=== PATIENT | male | born 1940 | race Caucasian/White ===

== ENCOUNTER 2017-04-17 08:09 | Outpatient (CLI) | payer MEDICARE, OTHER | END 2017-04-17 08:10 | disposition critical access hospital (66) | LOC: EMS 08:09 | PROVIDERS: ATTEND Surgery | DX: R06.00 Dyspnea, unspecified (principal) | CPT/HCPCS: A0425; A0429 ==

== ENCOUNTER 2017-04-17 08:28 | Inpatient (IN) | payer MEDICARE, OTHER ==
--- NOTE | 2017-04-17 08:38 | ED Physician Documentation ---
History of Present Illness - Stated complaint Stated Complaint: DIFFICULTY BREATHING - Additonal information Additional information: hx from EMS and paperwork from [facility] 77 male DNR comfort measures only, POLST brought by EMS hx a fib, hypokalemia, resp failure, dementia per EMS sent to ER today for gurgling resp, concern for aspiration no reported fever no NVD pt denies any pain per EMS, family/POA has been contacted prior to transport and wanted pt sent to ER for eval and per POLST "antibiotics as needed for comfort" was 85% RA and better on 4 L NC Review of Systems Constitutional: denies: Fever Cardiac: denies: Chest pain / pressure Respiratory: reports: Dyspnea. denies: Cough (gurgling but not coughing) GI: denies: Abdominal Pain, Nausea, Vomiting, Diarrhea Skin: denies: Rash Musculoskeletal: denies: Neck pain, Back pain Neurologic: reports: Confused (dementia) Endocrine: denies: Easy bruising / bleeding Immunocompromised: denies: Immunocompromised PD PAST MEDICAL HISTORY - Past Medical History Cardiovascular: None, High cholesterol Respiratory: None Neuro: None, Tremors Endocrine/Autoimmune: None GI: None, Pancreatitis : None HEENT: None Psych: None Musculoskeletal: None Derm: None - Past Surgical History Past Surgical History: Yes HEENT: Tonsil/Adenoidectomy - Present Medications Home Medications: Ambulatory Orders Medication Instructions Recorded Confirmed Acetaminophen 650 mg PO BID 04/17/17 04/17/17 Aspirin Chewable [St Patricio 81 mg PO DAILY 04/17/17 04/17/17 Aspirin] Pnv95/Ferrous Fumarate/FA 1 tab PO DAILY 04/17/17 04/17/17 [ Tablet] Quetiapine Fumarate [Quetiapine 50 mg PO QPM 04/17/17 04/17/17 Fumarate] Tamsulosin [Flomax] 0.4 mg PO DAILY 04/17/17 04/17/17 - Allergies Allergies/Adverse Reactions: Allergies Allergy/AdvReac Type Severity Reaction Status Date / Time No Known Drug Allergies Allergy Verified 03/30/13 18:39 - Social History Does the pt smoke?: Yes Smoking Status: Current every day smoker Does the pt drink ETOH?: Yes Does the pt have substance abuse?: No - Immunizations Immunizations are current?: Yes - POLST Patient has POLST: No PD ED PE NORMAL - Vitals Vital signs reviewed: Yes (tacypneic hypoxic borderline hypotensive) - General General: No: Alert and oriented X 3 - HEENT HEENT: Atraumatic - Neck Neck: Supple, no meningeal sign - Cardiac Cardiac: RRR (distant hard to hear over breath sounds) - Respiratory Respiratory: Other (wet gurgling resp bilaterally) - Derm Derm: Normal color - Extremities Extremities: No edema - Neuro Neuro: No: Alert and oriented X 3 (per EMS baseline dementia) Results - Vitals Vitals: Vital Signs - 24 hr 04/17/17 04/17/17 08:29 10:42 Temperature 36.8 C Heart Rate 86 74 Respiratory 26 H 18 Rate Blood Pressure 100/60 115/64 O2 Saturation 91 L 90 L Oxygen O2 Source [Without Activity] Room air O2 Source [With Activity] Room air O2 Source Room air Oxygen Flow Rate 4 - EKG (time done) 0837 Rate: Rate (enter#) (86) Rhythm: Atrial fibrillation (not new) Ischemia: Non specific changes (flat T waves inf and lat) - Labs Labs: Laboratory Tests 04/17/17 04/17/17 04/17/17 09:23 09:23 09:23 WBC 14.4 H RBC 3.78 L Hgb 11.5 L Hct 34.2 L MCV 90.5 MCH 30.5 MCHC 33.7 RDW 14.1 Plt Count 243 MPV 7.6 Neut # 12.1 H Lymph # 1.3 L [place] # 0.9 Eos # 0.0 Baso # 0.1 Absolute Nucleated RBC 0.00 Nucleated RBC % 0.0 Sodium 137 Potassium 4.0 Chloride 99 L Carbon Dioxide 25 Anion Gap 13.0 BUN 21 H Creatinine 1.3 H Estimated GFR (MDRD) 53 L Glucose 95 Lactic Acid Calcium 9.0 Troponin I < 0.04 B-Natriuretic Peptide 04/17/17 04/17/17 09:23 09:23 WBC RBC Hgb Hct MCV MCH MCHC RDW Plt Count MPV Neut # Lymph # [place] # Eos # Baso # Absolute Nucleated RBC Nucleated RBC % Sodium Potassium Chloride Carbon Dioxide Anion Gap BUN Creatinine Estimated GFR (MDRD) Glucose Lactic Acid 1.1 Calcium Troponin I B-Natriuretic Peptide 101 H - Rads (name of study) CXR Radiology: See rad report (LLL pna) PD MEDICAL DECISION MAKING - ED course ED course: LLL pna, hypotesnive meets SIRS criteria and no CHF on CXR so started IVF resusc , gave rocephin zmax (as not RML doubt aspiration), lives in assisted living and hypoxic so cannot dc and will admit nurse Onesimo updated family - see NN paged hospitalist approx 10 AM Departure - Departure Disposition: 66 [facility] DC/Xfer Clinical Impression: Hypoxia Pneumonia Qualifiers: Pneumonia type: due to unspecified organism Laterality: left Lung location: lower lobe of lung Qualified Code(s): J18.1 - Lobar pneumonia, unspecified organism Sepsis Qualifiers: Sepsis type: sepsis due to unspecified organism Qualified Code(s): A41.9 - Sepsis, unspecified organism Condition: Serious
--- NOTE | 2017-04-17 09:28 | XRAY Preliminary Report ---
Exam: XR CHEST 2 VIEW PA/LAT IMPRESSION: Left lower lobe airspace disease compatible with pneumonia. [facility] SITE ID: [id number]
[2017-04-17] MEDS ORDERED: cefTRIAXone 1 GM in SODIUM CHLORIDE 0.9% MINIBAG 100 ML IV STA (09:31)
[2017-04-17] MEDS ORDERED: AZITHROMYCIN INJ 500 MG in SODIUM CHLORIDE 0.9% 250 ML IV STA (09:31)
--- NOTE | 2017-04-17 09:31 | XRAY Report ---
EXAM: CHEST RADIOGRAPHY EXAM DATE: 04/17/2017 08:51 AM. CLINICAL HISTORY: Cough and rhonchi, possible aspiration. COMPARISON: Chest x-ray 10/05/2013. TECHNIQUE: 2 views. FINDINGS: Lungs/Pleura: Left lower lobe airspace disease. Bibasilar atelectasis. No pneumothorax. Mediastinum: Heart and mediastinal contours are unremarkable. Other: Diffuse osteopenia with midthoracic kyphosis. Mid thoracic spine degenerative changes. Left sh oulder degenerative changes. IMPRESSION: Left lower lobe airspace disease compatible with pneumonia. [facility] Referring Provider Line: [phone] SITE ID: [id number]
[2017-04-17 09:33] LABS: BASOPHILS # (AUTO) 0.1 10^3/uL (0.0-0.1); BASOPHILS % (AUTO) 0.5 %; HCT - HEMATOCRIT 34.2 % (42.0-52.0); HGB - HEMOGLOBIN 11.5 g/dL (14.0-18.0); LYMPHOCYTES # (AUTO) 1.3 10^3/uL (1.5-3.5); LYMPHOCYTES % (AUTO) 9.3 %; MEAN CORPUSCULAR HEMOGLOBIN 30.5 pg (27.0-31.0); MEAN CORPUSCULAR HGB CONC 33.7 g/dL (32.0-36.0); MEAN CORPUSCULAR VOLUME 90.5 fL (80.0-94.0); MEAN PLATELET VOLUME 7.6 fL (7.4-11.4); MONOCYTES # (AUTO) 0.9 10^3/uL (0.0-1.0); NEUTROPHILS # (AUTO) 12.1 10^3/uL (1.5-6.6); NEUTROPHILS % (AUTO) 84.2 %; RED BLOOD COUNT 3.78 10^6/uL (4.70-6.10); RED CELL DISTRIBUTION WIDTH 14.1 % (12.0-15.0); UNCORRECTED WHITE BLOOD COUNT 14.4 x10^3/uL; WHITE BLOOD COUNT 14.4 x10^3/uL (4.8-10.8)
[2017-04-17 09:42] LABS: CREATININE 1.3 mg/dL (0.6-1.2)
[2017-04-17] MEDS ORDERED: SODIUM CHLORIDE 0.9% 2,500 ML IV ONE (09:43)
[2017-04-17] MEDS ORDERED: cefTRIAXone 1 GM VIAL ONE (09:47)
[2017-04-17] MEDS ORDERED: LORazepam 2 MG/ML SYRINGE IVP STA (11:14)
[2017-04-17] MEDS ORDERED: LORazepam 2 MG/ML SYRINGE ONE (11:26)
[2017-04-17] MEDS ORDERED: SODIUM CHLORIDE FLUSH 0.9% 10 ML SYRINGE IVP PRN (12:22)
[2017-04-17] MEDS ORDERED: ONDANSETRON ODT 4 MG TABLET TL PRN (12:22)
--- NOTE | 2017-04-17 12:30 | HISTORY & PHYSICAL EXAMINATION ---
Chief Complaint - Chief Complaint Chief Complaint: shortness of breath Respiratory Admission HPI - Admitted From Admitted from: ED - History Obtained From Records Reviewed: RN notes reviewed, Old records reviewed History obtained from: Family Exam limitations: Clinical condition, Other (AMS) - History of Present Illness Severity at the worst: reports: Moderate Context of Onset: reports: Exertion, Inspiration Improved with: reports: Rest, Oxygen Worsened by: reports: Exertion, Movement Associated symptoms: reports: Diaphoresis, General weakness HPI Comment/Other: Ed Robert is a 77 year old male with a history of A-fib, hypokalemia, resp failure, dementia who resides at [facility]. He is a DNR, with comfort measures only, per POLST brought by EMS. An ambulance was called due to the patient noted as having gurgling respirations, concern for aspiration. There have been no reported fevers, nausea, vomiting or diarrhea. According to EMS, family/POA has been contacted prior to transport and wanted patient sent to ER for evaluation and per POLST "antibiotics as needed for comfort". Once in the ED, the patient was noted to have an oxygen saturation of only 85% on room air, improved on 4 L NC. He will be admitted to the hospitalist service and treated for HCAP. Number listed for next of kin is now per daughter. Chart updated. PMH/PSH - Past Medical History Cardiovascular: positive: None, High cholesterol Respiratory: positive: None Neuro: positive: None, Tremors Endocrine/Autoimmune: positive: None GI: positive: None, Pancreatitis : positive: None HEENT: positive: None Psych: positive: None Musculoskeletal: positive: None Derm: positive: None MRSA Hx?: No - Past Surgical History HEENT: positive: Tonsil/Adenoidectomy Social & Family Hx - Living Situation Living Arrangement: nursing home Living Situation: With caregiver(s) - Social History Does the pt smoke?: Yes Smoking Status: Current every day smoker Does the pt drink ETOH?: Yes Does the pt have substance abuse?: No - POLST Patient has POLST: Yes POLST Status: DNR (antibioitics ok.) - Family History Family History: Mother: , Father: , Sister: Meds/Allgy - Home Medications Home Medications: Ambulatory Orders Medication Instructions Recorded Confirmed Acetaminophen 650 mg PO BID 04/17/17 04/17/17 Aspirin Chewable [St Patricio 81 mg PO DAILY 12/05/17 12/05/17 Aspirin] Pnv95/Ferrous Fumarate/FA 1 tab PO DAILY 04/17/17 04/17/17 [ Tablet] Quetiapine Fumarate [Quetiapine 50 mg PO QPM 04/17/17 04/17/17 Fumarate] Tamsulosin [Flomax] 0.4 mg PO DAILY 04/17/17 04/17/17 - Allergies Allergies/Adverse Reactions: Allergies Allergy/AdvReac Type Severity Reaction Status Date / Time No Known Drug Allergies Allergy Verified 03/30/13 18:39 Review of Systems - Constitutional Constitutional: reports: Fatigue, Weakness, Poor appetite, Diaphoresis - Ears, Nose & Throat Ears, Nose & Throat: reports: Hearing loss, Nasal congestion - Respiratory Respiratory: reports: Cough, Sputum production, SOB at rest, SOB with exertion - Gastrointestinal Gastrointestinal: reports: Bloating, Poor appetite - Genitourinary Genitourinary: reports: Dysuria, Frequency, Urgency, Incontinence, Nocturia - Musculoskeletal Musculoskeletal: reports: Limited range of motion, Muscle weakness, Joint swelling - Integumentary Integumentary: reports: Dryness - Neurological Neurological: reports: General weakness, Memory problems, Pre-existing deficit, Abnormal gait, Incoordination - Psychiatric Psychiatric: reports: Anxiety - All Other Systems All Other Systems: reports: Reviewed and negative Exam - Vital Signs Reviewed Vital Signs: Yes Vital Signs: Vital Signs x48h Temp Pulse Resp BP Pulse Ox 04/17/17 10:42 74 18 115/64 90 L 04/17/17 08:29 36.8 C 86 26 H 100/60 91 L - Physical Exam General Appearance: positive: Moderate distress, Anxious Eyes Bilateral: positive: Normal inspection ENT: positive: ENT inspection nml, Dry mucous membranes Neck: positive: Nml inspection, Thyroid nml, Lymphadenopathy (R), Lymphadenopathy (L) Respiratory: positive: Chest non-tender, Wheezes, Rhonchi Cardiovascular: positive: Regular rate & rhythm, No gallop, Systolic murmur Peripheral Pulses: positive: 1+ Abdomen: positive: Guarding, Rebound, Hepatomegaly, Abnml bowel sounds Back: positive: Nml inspection Skin: positive: Color nml, No rash, Cyanosis, Diaphoresis, Pallor Extremities: positive: Full ROM, Pedal edema, Calf tenderness Neurologic/Psychiatric: positive: Disoriented to place, Disoriented to time, Weakness, Sensory loss, Depressed mood/affect Reflexes: Bicep (R): 2+, Bicep (L): 2+ Results - Lab Results Lab results reviewed: Yes Fish Bones: 04/17/17 09:23 04/17/17 09:23 Other Lab Results: Lab Results x24hrs 04/17/17 04/17/17 04/17/17 Range/Units 09:23 09:23 09:23 WBC (4.8-10.8) x10^3/uL RBC (4.70-6.10) 10^6/uL Hgb (14.0-18.0) g/dL Hct (42.0-52.0) % MCV (80.0-94.0) fL MCH (27.0-31.0) pg MCHC (32.0-36.0) g/dL RDW (12.0-15.0) % Plt Count (130-450) 10^3/uL MPV (7.4-11.4) fL Neut # (1.5-6.6) 10^3/uL Lymph # (1.5-3.5) 10^3/uL [place] # (0.0-1.0) 10^3/uL Eos # (0.0-0.7) 10^3/uL Baso # (0.0-0.1) 10^3/uL Absolute Nucleated RBC x10^3/uL Nucleated RBC % /100WBC Sodium (135-145) mmol/L Potassium (3.5-5.0) mmol/L Chloride (101-111) mmol/L Carbon Dioxide (21-32) mmol/L Anion Gap (6-13) BUN (6-20) mg/dL Creatinine (0.6-1.2) mg/dL Estimated GFR (MDRD) (>89) Glucose (70-100) mg/dL Lactic Acid 1.1 (0.5-2.2) mmol/L Calcium (8.5-10.3) mg/dL Troponin I < 0.04 (<0.49) ng/mL B-Natriuretic Peptide 101 H (5-100) pg/mL 04/17/17 04/17/17 Range/Units 09:23 09:23 WBC 14.4 H (4.8-10.8) x10^3/uL RBC 3.78 L (4.70-6.10) 10^6/uL Hgb 11.5 L (14.0-18.0) g/dL Hct 34.2 L (42.0-52.0) % MCV 90.5 (80.0-94.0) fL MCH 30.5 (27.0-31.0) pg MCHC 33.7 (32.0-36.0) g/dL RDW 14.1 (12.0-15.0) % Plt Count 243 (130-450) 10^3/uL MPV 7.6 (7.4-11.4) fL Neut # 12.1 H (1.5-6.6) 10^3/uL Lymph # 1.3 L (1.5-3.5) 10^3/uL [place] # 0.9 (0.0-1.0) 10^3/uL Eos # 0.0 (0.0-0.7) 10^3/uL Baso # 0.1 (0.0-0.1) 10^3/uL Absolute Nucleated RBC 0.00 x10^3/uL Nucleated RBC % 0.0 /100WBC Sodium 137 (135-145) mmol/L Potassium 4.0 (3.5-5.0) mmol/L Chloride 99 L (101-111) mmol/L Carbon Dioxide 25 (21-32) mmol/L Anion Gap 13.0 (6-13) BUN 21 H (6-20) mg/dL Creatinine 1.3 H (0.6-1.2) mg/dL Estimated GFR (MDRD) 53 L (>89) Glucose 95 (70-100) mg/dL Lactic Acid (0.5-2.2) mmol/L Calcium 9.0 (8.5-10.3) mg/dL Troponin I (<0.49) ng/mL B-Natriuretic Peptide (5-100) pg/mL - Diagnostic Imaging Results Diagnostic Imaging Results: positive: Final report reviewed Diagnostic Imaging Results Comments: Chest x-ray 04/17/17: FINDINGS: Lungs/Pleura: Left lower lobe airspace disease. Bibasilar atelectasis. No pneumothorax. Mediastinum: Heart and mediastinal contours are unremarkable. Other: Diffuse osteopenia with midthoracic kyphosis. Mid thoracic spine degenerative changes. Left shoulder degenerative changes. IMPRESSION: Left lower lobe airspace disease compatible with pneumonia. - EKG Results EKG Interpreted Independently: Yes ARRA - Anticipated LOS Anticipated Stay Length: 2 or more midnights - AMI - Statin at Admit Aspirin Prescribed on Admit: No Not Ordered - Medical Reason: Contraindicated - Stroke - Rehab Assessment Rehab services assessment to be ordered?: No Not Ordered - Medical Reason: Contraindicated - DVT/VTE - Prophylaxis VTE/DVT Device ordered at admit?: Yes VTE/DVT Prophylaxis med ordered at admit?: Yes Impression/Plan - Problem List Problem List: Pneumonia (J18.9)- Patient was profoundly hypoxic on admission. Elevated WBCs 14.4. Possible aspiration PNA d/t decline in health. Plan: Blood cultures-final pending. Urine culture-pending. Start IV pip-tazo and support respiratory status. Hypoxia (R09.02)- Patient required 4L oxymask on admit. Plan: Start treatment for PNA, wean O2. ETOH abuse (F10.10) - Patient has a known history of this, but cannot use currently due to housing situation. Plan: Continue to restrict use. DNR (do not resuscitate) (Z66)- Patient has a POA who is his son, and daughter being secondary. Plan: Continue supportive care as per POLST documentation. DVT prophylaxis with enoxaparin.
[2017-04-17] MEDS: SODIUM CHLORIDE FLUSH 0.9% 10 ML SYRINGE IVP SCH ×2 (14:21→20:34)
[2017-04-17 20:04] LABS: BILIRUBIN,URINE NEGATIVE (NEGATIVE)
[2017-04-17 20:11] LABS: UR CULTURE IF IND NOT INDICATED; WBC,URINE 0-3 /HPF (0-3)
[2017-04-17] MEDS: PIPERACILLIN/TAZOBACTAM 4.5 GM in SODIUM CHLORIDE 0.9% MINIBAG 100 ML IV SCH (20:34)
[2017-04-17] MEDS: OLANZapine ODT 5 MG TABLET TL SCH (20:34)
[2017-04-18] MEDS: PIPERACILLIN/TAZOBACTAM 4.5 GM in SODIUM CHLORIDE 0.9% MINIBAG 100 ML IV SCH ×4 (02:19→20:10)
[2017-04-18] MEDS: SODIUM CHLORIDE FLUSH 0.9% 10 ML SYRINGE IVP SCH ×3 (02:19→20:10)
[2017-04-18] MEDS: POLYETHYLENE GLYCOL 3350 17 GM PACKET PO SCH (08:24)
[2017-04-18] MEDS: ENOXAPARIN 40 MG/0.4 ML SYRINGE SUBQ SCH (08:24)
--- NOTE | 2017-04-18 17:08 | PROVIDER PROGRESS NOTE ---
Subjective - Prog Note Date Prog Note Date: 04/18/17 Prog Note Time: 17:07 - Subjective Pt reports feeling: Improved Subjective: Ed admits to not remembering yesterday and cannot say where he is today. He states that he has pain "every where". He denies SOB, chest pain, or N/V. Current Medications - Current Medications Current Medications: Active Medications Enoxaparin Sodium (Lovenox) 40 mg SUBQ DAILY [facility] Last Admin: 04/18/17 08:24 Dose: 40 mg Piperacillin Sod/Tazobactam (Sod 4.5 gm/ Sodium Chloride) 100 mls @ 200 mls/hr IV Q6H [facility] Last Infusion: 04/18/17 14:34 Dose: Infused Olanzapine (Zyprexa Odt) 5 mg TL QPM [facility] Last Admin: 04/17/17 20:34 Dose: 5 mg Ondansetron HCl (Zofran Odt) 4 mg TL Q6HR PRN PRN Reason: Nausea / Vomiting Polyethylene Glycol (Miralax) 17 gm PO DAILY [facility] Last Admin: 04/18/17 08:24 Dose: Not Given Sodium Chloride (Normal Saline Flush 0.9%) 10 ml IVP PRN PRN PRN Reason: NEEDED PER PROVIDER ORDERS Sodium Chloride (Normal Saline Flush 0.9%) 10 ml IVP Q8HR [facility] Last Admin: 04/18/17 14:04 Dose: 10 ml Acetaminophen 650 mg PO BID 04/17/17 Aspirin Chewable [St Patricio Aspirin] 81 mg PO DAILY 04/17/17 Pnv95/Ferrous Fumarate/FA [ Tablet] 1 tab PO DAILY 04/17/17 Quetiapine Fumarate [Quetiapine Fumarate] 50 mg PO QPM 04/17/17 Tamsulosin [Flomax] 0.4 mg PO DAILY 04/17/17 Objective - Vital Signs/Intake & Output Reviewed Vital Signs: Yes Vital Signs: Vital Signs x48h Temp Pulse Resp BP Pulse Ox 04/18/17 15:34 36.6 C 83 17 119/78 92 Intake & Output: Intake & Output 04/15/17 04/16/17 04/17/17 04/18/17 23:59 23:59 23:59 23:59 Intake Total 2600 300 Output Total 1400 350 Balance 1200 -50 - Objective General Appearance: positive: No acute distress, Alert Eyes Bilateral: positive: Other (Bilateral lower lid inflammation.) ENT: positive: ENT inspection nml, Dry mucous membranes Neck: positive: Nml inspection, Thyroid nml, No JVD Respiratory: positive: Chest non-tender, No respiratory distress, Rhonchi ( diffuse, throughout.) Cardiovascular: positive: Regular rate & rhythm, No gallop, Systolic murmur Peripheral Pulses: 1+ Radial (R), 1+ Radial (L) Abdomen: positive: Tenderness, Hepatomegaly, Abnml bowel sounds Back: positive: Nml inspection Skin: positive: Color nml, No rash, Warm, Dry Extremities: positive: Non-tender, Full ROM (sitting iraqi style for exam.), Pedal edema, Calf tenderness Neurologic/Psychiatric: positive: Disoriented to place, Disoriented to time, Weakness, Sensory loss, Depressed mood/affect Reflexes: Bicep (R): 2+, Bicep (L): 2+ - Lab Results Fish Bones: 04/17/17 09:23 04/17/17 09:23 Other Labs: Lab Results x24hrs 04/17/17 Range/Units 19:36 Urine Color YELLOW Urine Clarity CLEAR (CLEAR) Urine pH 6.0 (5.0-7.5) PH Ur Specific [place] 1.020 (1.002-1.030) Urine Protein NEGATIVE (NEGATIVE) mg/dL Urine Glucose (UA) NEGATIVE (NEGATIVE) mg/dL Urine Ketones NEGATIVE (NEGATIVE) mg/dL Urine Occult Blood NEGATIVE (NEGATIVE) Urine Nitrite NEGATIVE (NEGATIVE) Urine Bilirubin NEGATIVE (NEGATIVE) Urine Urobilinogen 0.2 (NORMAL) (NORMAL) E.U./dL Ur Leukocyte Esterase NEGATIVE (NEGATIVE) Urine RBC 0-5 (0-5) /HPF Urine WBC 0-3 (0-3) /HPF Ur Squamous Epith Cells RARE Squamous (<= Few) Urine Bacteria Rare (None Seen) /HPF Urine Culture Comments NOT INDICATED - Diagnostic Imaging Diagnostic Imaging Results: positive: Final report reviewed Assessment/Plan - Problem List (1) Hypoxia Impression: Patient required 4L oxymask on admit. Remarkably improved respiratory efforts today on exam. Able to speak in full sentences and much more alert. Plan: Start treatment for PNA, wean O2. (2) Pneumonia Impression: Patient was profoundly hypoxic on admission. Elevated WBCs 14.4. Likely aspiration PNA d/t decline in health and noted coughing spells after oral intake. Blood cultures-final pending. Urine culture-pending. Plan: Continue IV pip-tazo and support respiratory status. Qualifiers: Pneumonia type: aspiration pneumonia Aspiration pneumonia type: unspecified Laterality: left Lung location: lower lobe of lung Qualified Code(s): J69.0 - Pneumonitis due to inhalation of food and vomit (3) Sepsis Impression: Patient was profoundly hypoxic on admission. Elevated WBCs 14.4. Possible aspiration PNA d/t decline in health. Sepsis work up as patient was also found to be febrile with a temp max of 38.9. Plan: Blood cultures- no growth to date. Urine culture-pending. Start IV pip- tazo and support respiratory status. Qualifiers: Sepsis type: sepsis due to unspecified organism Qualified Code(s): A41.9 - Sepsis, unspecified organism (4) DNR (do not resuscitate) Impression: Patient has a primary POA who is his son, and a secondary listed as his daughter. Plan: Provide antibiotics as per POLST document with a focus on comfort.
[2017-04-18] MEDS: OLANZapine ODT 5 MG TABLET TL SCH (20:10)
[2017-04-19] MEDS: PIPERACILLIN/TAZOBACTAM 4.5 GM in SODIUM CHLORIDE 0.9% MINIBAG 100 ML IV SCH ×2 (02:04→09:22)
[2017-04-19] MEDS: SODIUM CHLORIDE FLUSH 0.9% 10 ML SYRINGE IVP SCH ×2 (02:04→09:21)
--- NOTE | 2017-04-19 08:47 | DISCHARGE SUMMARY ---
Discharge Summary Admit Date: 04/17/17 Discharging Provider: PANCHITO Etienne Primary Care Provider: Muna Larry Code Status: Do Not Attempt Resuscitation Condition at Discharge: Good Discharge Disposition: 03 SNF DC/Xfer Discharge Facility Name: Home - DIAGNOSES Admission Diagnoses: Pneumonia (J18.9) Hypoxia (R09.02) ETOH abuse (F10.10) DNR (do not resuscitate) (Z66) DVT prophylaxis with enoxaparin. Discharge Diagnoses with Status of Each Condition: Hypoxia (R09.02) Pneumonia (J18.9) DNR (do not resuscitate) (Z66) ETOH abuse (F10.10) Sepsis (A41.9) - HPI History of Present Illness: Ed Chrnirali is a 77 year old male with a history of A-fib, hypokalemia, resp failure, dementia who resides at [facility]. He is a DNR, with comfort measures only, per POLST brought by EMS. An ambulance was called due to the patient noted as having gurgling respirations, concern for aspiration. There have been no reported fevers, nausea, vomiting or diarrhea. According to EMS, family/POA has been contacted prior to transport and wanted patient sent to ER for evaluation and per POLST "antibiotics as needed for comfort". Once in the ED, the patient was noted to have an oxygen saturation of only 85% on room air, improved on 4 L NC. He will be admitted to the hospitalist service and treated for HCAP. Number listed for next of kin is now per daughter. Chart updated. - HOSPITAL COURSE Hospital Course: Ed had wishes prior to this hospital stay to remain a DNR, but will accept antibiotics and oxygen. These wishes were carried out and the patient recieved appropriate antibiotics, supplemental oxygen and nursing care for his hospital stay. Shortly after arriving on the nursing floor, he needed bilateral wrist restraints, and then changed to a bed michelle belt for his safety. He was given palliative feedings, IV fluids, nebulizers and tylenol for comfort. Patient was in stable condition and weaned off from supplemental oxygen at the time of transfer back to his locked unit living. Oral antibiotic were prescribed to continue treating his illness of aspiration pneumonia. - ALLERGIES Allergies/Adverse Reactions: Allergies Allergy/AdvReac Type Severity Reaction Status Date / Time No Known Drug Allergies Allergy Verified 03/30/13 18:39 - MEDICATIONS Home Medications: Ambulatory Orders Medication Instructions Recorded Confirmed Acetaminophen 650 mg PO BID #30 04/19/17 04/17/17 Amoxicillin/Potassium Clav [Amox 1 each PO BID 7 Days #14 tablet 04/19/17 Tr-K Clv 875-125 mg Tab] Aspirin Chewable [St Patricio 81 mg PO DAILY #30 04/19/17 04/17/17 Aspirin] Pnv95/Ferrous Fumarate/FA 1 tab PO DAILY #30 04/19/17 04/17/17 [ Tablet] Quetiapine Fumarate 50 mg PO QPM #30 04/19/17 04/17/17 Tamsulosin [Flomax] 0.4 mg PO DAILY #30 04/19/17 04/17/17 - PHYSICAL EXAM AT DISCHARGE General Appearance: positive: No acute distress, Alert Eyes Bilateral: positive: Normal inspection, Other (chronic lower bilateral lid erythema.) ENT: positive: ENT inspection nml, Pharynx nml Neck: positive: Nml inspection, Thyroid nml, No JVD, Trachea midline Respiratory: positive: Chest non-tender, No respiratory distress, Wheezes, Rhonchi Cardiovascular: positive: No gallop, Irregularly irregular Peripheral Pulses: positive: 1+ Abdomen: positive: Non-tender, No organomegaly, Nml bowel sounds, No distention , Other (rounded.) Back: positive: Nml inspection Skin: positive: Color nml, No rash, Warm, Dry Extremities: positive: Non-tender, Pedal edema Neurologic/Psychiatric: positive: Disoriented to place, Disoriented to time, Weakness, Sensory loss, Depressed mood/affect Reflexes: Bicep (R): 2+, Bicep (L): 2+ - LABS Result Diagrams: 04/19/17 09:11 04/19/17 09:11 - DIAGNOSTIC IMAGING Diagnostic Imaging Results: Final report reviewed Diagnostic Imaging Results Comments: Chest x-ray 04/17/17: FINDINGS: Lungs/Pleura: Left lower lobe airspace disease. Bibasilar atelectasis. No pneumothorax. Mediastinum: Heart and mediastinal contours are unremarkable. Other: Diffuse osteopenia with midthoracic kyphosis. Mid thoracic spine degenerative changes. Left shoulder degenerative changes. IMPRESSION: Left lower lobe airspace disease compatible with pneumonia. - TIME SPENT Time Spent in Discharge (Minutes): 60
[2017-04-19] MEDS: ENOXAPARIN 40 MG/0.4 ML SYRINGE SUBQ SCH (09:21)
[2017-04-19 09:23] LABS: EOSINOPHILS # (AUTO) 0.1 10^3/uL (0.0-0.7); HCT - HEMATOCRIT 34.1 % (42.0-52.0); HGB - HEMOGLOBIN 11.6 g/dL (14.0-18.0); LYMPHOCYTES # (AUTO) 1.2 10^3/uL (1.5-3.5); LYMPHOCYTES % (AUTO) 24.5 %; MEAN CORPUSCULAR HEMOGLOBIN 30.7 pg (27.0-31.0); MEAN CORPUSCULAR VOLUME 90.5 fL (80.0-94.0); MEAN PLATELET VOLUME 7.9 fL (7.4-11.4); MONOCYTES # (AUTO) 0.4 10^3/uL (0.0-1.0); MONOCYTES % (AUTO) 8.5 %; NEUTROPHILS # (AUTO) 3.2 10^3/uL (1.5-6.6); RED BLOOD COUNT 3.77 10^6/uL (4.70-6.10); RED CELL DISTRIBUTION WIDTH 13.7 % (12.0-15.0)
[2017-04-19 09:38] LABS: ALBUMIN/GLOBULIN RATIO 1.1 (1.0-2.2); BILIRUBIN,TOTAL 0.9 mg/dL (0.2-1.0); CALCIUM 8.7 mg/dL (8.5-10.3); CREATININE 0.9 mg/dL (0.6-1.2); POTASSIUM 3.5 mmol/L (3.5-5.0); TOTAL PROTEIN 7.4 g/dL (6.7-8.2)
[2017-04-19 09:56] VITALS: BP 104/32
[2017-04-19] MEDS: POLYETHYLENE GLYCOL 3350 17 GM PACKET PO SCH (11:26)
--- NOTE | 2017-04-19 12:56 | Discharge Plan ---
Discharge Plan Disposition: 65 Psych Hosp/Unit DC/Xfer Condition: Good Prescriptions: Amoxicillin/Potassium Clav [Amox Tr-K Clv 875-125 mg Tab] 1 each PO BID 7 Days # 14 tablet Activity Restrictions: No Restrictions Shower Restrictions: No Driving Restrictions: No No Smoking: If you smoke, Please STOP! Call for help. Follow-up with: Muna Larry MD [Primary Care Provider] -
--- NOTE | 2017-04-19 13:06 | Discharge Plan ---
"Discharge Plan for SNF / SNF - DC Plan and Transition Orders Disposition: 03 SNF DC/Xfer Condition: Good SNF Transition Orders: Admit to: [facility] under the care of Muna Larry Discharge Diagnosis: Aspiration PNA Medicare Certification: I certify that [facility] al[facility] care is medically necessary on a continuing basis for any of the conditions for which she/he is receiving care during hospitalization. Notify PCP of admission and forward orders to primary provider for signature. Weight on admission and weekly. Call PCP immediately if weight increases by 5 pounds or if patient develops dyspnea, chest pain/tightness or edema. House Bowel Program: yes If no BM after 2 days, nurse may give M.O.M. 30ml PO PRN and /or ducolax Supp 1 RI and /or MANUEL 250mg P.O., and/or senna 1-2 tabs PO. On day 3 nurse may give repeat above order until residents constipation is resolved. Immunizations: Annual Influenza Vaccine: yes. (between Jan 12 and August 11.) Unless allergy or already given Two-Step PPD: yes per [facility] [id number] or appropriate documentation of approved exceptions Treatments & Other Orders: Continue incentive spirometry, antibiotics x7 days and encouraged out of bed. Oxygen Orders: 1-3L nasal cannula to keep oxygen sat greater than 90%. Lab Tests or X-Rays Orders: Not indicated. Orthopedic Orders: none. Medications: PLEASE REFER TO THE DISCHARGE MEDICATION LIST. Insulin Orders? no Diagnosis: Diabetes Initiate hypo and hyperglycemia protocols for BG <70 and BG >375. May check BG prn for signs/symptoms of dysglycemia. Frequency of BG checks: N/A Correction Insulin: - Select the type of insulin below Choose: Novolog/[id number] units /ml insulin inject subq per orders indicate below LOW DOSE MODERATE DOSE MODERATE/HIGH DOSE HIGH DOSE GB UNITS GB UNITS GB UNITS GB UNITS 61-140 0 UNITS 61-140 0 UNITS 61-140 0 UNITS 61-140 0 UNITS 141-175 1 UNITS 141-175 1 UNITS 141-175 2 UNITS 141-175 3 UNITS 176-225 2 UNITS 176-225 3 UNITS 176-225 4 UNITS 176-225 5 UNITS 226-275 3 UNITS 226-275 5 UNITS 226-275 6 UNITS 226-275 7 UNITS 276-325 4 UNITS 276-325 7 UNITS 276-325 8 UNITS 276-325 9 UNITS 326-375 5 UNITS 326-375 9 UNITS 326-375 10 UNITS 326-375 11 UNITS >375 CONTACT MD >375 CONTACT MD >375 CONTACT MD >375 CONTACT MD Custom Dosing: Choose: None/Novolog/Humalog 100 units/ml Insulin inject subq as follows: GB Units 61-140 Units 141-175 Units 176-225 Units 226-275 Units 276-325 Units 326-375 Units >375 Contact MD Allergies and Adverse Reactions: Allergies Allergy/AdvReac Type Severity Reaction Status Date / Time No Known Drug Allergies Allergy Verified 03/30/13 18:39 - Medications New Prescriptions: Amoxicillin/Potassium Clav [Amox Tr-K Clv 875-125 mg Tab] 1 each PO BID 7 Days # 14 tablet - Diet Texture: [facility] soft Liquids: Prue thick May have monthly special meal: Yes - Therapies | Activity Therapy: Evaluation | Treat if indicated: Speech, PT, OT, Swallowing / ST Rehabilitation Potential: Maximize functional status, Return to independent living Activity: No Restrictions Weight Bearing: Full Weight Assistance Devices: Other Follow Up: Follow up with PCP or as per facility."
== END 2017-04-19 14:30 | DRG 177 ==
LOC: EDUNIT# → ED 08:28 → MS2 12:22
PROVIDERS: ADMIT Nurse Practitioner; ATTEND Nurse Practitioner
DX: J69.0 Pneumonitis due to inhalation of food and vomit (principal); J18.1 Lobar pneumonia, unspecified organism; A41.9 Sepsis, unspecified organism; I95.9 Hypotension, unspecified; R09.02 Hypoxemia; I48.91 Unspecified atrial fibrillation; F03.90 Unspecified dementia, unspecified severity, without behavioral disturbance, psychotic disturbance, mood disturbance, and anxiety; F17.200 Nicotine dependence, unspecified, uncomplicated; F10.11 Alcohol abuse, in remission; F41.9 Anxiety disorder, unspecified; Z66 Do not resuscitate; Z78.1 Physical restraint status; Z79.82 Long term (current) use of aspirin
CPT/HCPCS: 36415; 51701; 71020; 80048; 80053; 81001; 83605; 83880; 84484; 85025; 87040; 87086; 93005; 96361; 96365; 96367; 96375; 99284; 99285

== ENCOUNTER 2019-05-25 13:01 | Outpatient (CLI) | payer MEDICARE, OTHER | END 2019-05-25 13:02 | disposition critical access hospital (66) | LOC: EMS 13:01 | PROVIDERS: ATTEND Surgery | DX: R56.9 Unspecified convulsions (principal) | CPT/HCPCS: A0425; A0427 ==

== ENCOUNTER 2019-05-25 13:17 | Emergency (ER) | payer MEDICARE, OTHER ==
--- NOTE | 2019-05-25 13:50 | ED Physician Documentation ---
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 Reportedly he was at [facility] and had seizure like activity that lasted around 5 minutes. EMS describe him as having rhythmic jerking movements, though this is secondhand information. He was given Versed. Patient is not able to give me any information he opens his eyes and tracks but does not converse with me. I spoke with staff members at [facility] via phone. They report he was sitting in chair having lunch, had a seizure and was lowered to the ground. No hx of seizures as far as known. About 5 minutes. He is independently mobile, at baseline says a couple words but does not hold full conversations. Quetiapine decreased 50->25 and trazodone started on the 8th. There is no one at [facility] available to talk to me that actually witnessed the seizure or describe in detail what was seen. Review of Systems Unable to obtain: Confused PD PAST MEDICAL HISTORY - Past Medical History Past Medical History: Yes Cardiovascular: None, High cholesterol, Atrial fibrillation Respiratory: None Neuro: Dementia Endocrine/Autoimmune: None GI: Pancreatitis : None HEENT: None Psych: None Musculoskeletal: None Derm: None - Past Surgical History Past Surgical History: Yes HEENT: Tonsil/Adenoidectomy - Present Medications Home Medications: Ambulatory Orders Medication Instructions Recorded Confirmed Acetaminophen 650 mg PO BID #30 04/19/17 04/17/17 Amoxicillin/Potassium Clav [Amox 1 each PO BID 7 Days #14 tablet 04/19/17 Tr-K Clv 875-125 mg Tab] Aspirin Chewable [St Patricio 81 mg PO DAILY #30 04/19/17 04/17/17 Aspirin] Pnv No.95/Ferrous Fum/Folic AC 1 tab PO DAILY #30 04/19/17 04/17/17 [ Tablet] Quetiapine Fumarate 50 mg PO QPM #30 04/19/17 04/17/17 Tamsulosin [Flomax] 0.4 mg PO DAILY #30 04/19/17 04/17/17 - Allergies Allergies/Adverse Reactions: Allergies Allergy/AdvReac Type Severity Reaction Status Date / Time No Known Drug Allergies Allergy Verified 05/25/19 13:26 - Social History Does the pt smoke?: Yes Smoking Status: Current every day smoker Does the pt drink ETOH?: Yes Does the pt have substance abuse?: No - Immunizations Immunizations are current?: Yes - POLST Patient has POLST: Yes POLST Status: DNR (antibioitics ok.) PD ED PE NORMAL - Vitals Vital signs reviewed: Yes - General General: Other (Opens eyes, moves all extremities, does not follow commands.) - HEENT HEENT: Atraumatic, PERRL - Neck Neck: Supple, no meningeal sign - Cardiac Cardiac: Other (Regular rate and rhythm.) - Respiratory Respiratory: No respiratory distress - Abdomen Abdomen: Non tender, Non distended - Extremities Extremities: No deformity - Neuro Neuro: Other (Opens eyes, will track, but does not answer questions. He is able to squeeze my hand and follow basic commands, he moves all 4 extremities.) Results - Vitals Vitals: Vital Signs - 24 hr 05/25/19 05/25/19 05/25/19 13:20 14:03 16:00 Temperature 36.9 C Heart Rate 91 76 74 Respiratory 22 16 18 Rate Blood Pressure 118/77 122/83 H 148/108 H O2 Saturation 97 97 99 Oxygen O2 Source [Without Activity] Room air O2 Source [With Activity] Room air O2 Source Nasal cannula Oxygen Flow Rate 4 - EKG (time done) 13:32 Other comments: Other comments (Rate 82, rhythm sinus with PAC, no ST segment changes. There is T wave flattening in aVF, Q waves in lead III. Intervals within normal limits) - Labs Labs: Laboratory Tests 05/25/19 05/25/19 05/25/19 14:40 14:40 14:40 WBC 8.8 RBC 3.91 L Hgb 12.5 L Hct 37.9 L MCV 96.9 H MCH 32.0 H MCHC 33.0 RDW 13.6 Plt Count 278 MPV 9.7 Neut # (Auto) 7.0 H Lymph # (Auto) 1.0 L Carlton # (Auto) 0.5 Eos # (Auto) 0.1 Baso # (Auto) 0.0 Absolute Nucleated RBC 0.00 Nucleated RBC % 0.0 Sodium 141 Potassium 4.0 Chloride 104 Carbon Dioxide 28 Anion Gap 9.0 BUN 16 Creatinine 0.9 Estimated GFR (MDRD) 81 L Glucose 121 H Calcium 9.4 Total Bilirubin 0.6 AST 26 ALT 17 Alkaline Phosphatase 53 Troponin I High Sens 3.4 Total Protein 7.4 Albumin 4.4 Globulin 3.0 Albumin/Globulin Ratio 1.5 Lipase 25 TSH Urine Color Urine Clarity Urine pH Ur Specific Mobile Urine Protein Urine Glucose (UA) Urine Ketones Urine Occult Blood Urine Nitrite Urine Bilirubin Urine Urobilinogen Ur Leukocyte Esterase Urine RBC Urine WBC Ur Squamous Epith Cells Urine Bacteria Urine Culture Comments Urine Opiates Screen Ur Oxycodone Screen Urine Methadone Screen Ur Propoxyphene Screen Ur Barbiturates Screen Ur Tricyclics Screen Ur Phencyclidine Scrn Ur Amphetamine Screen U Methamphetamines Scrn U Benzodiazepines Scrn Urine Cocaine Screen U Cannabinoids Screen Ethyl Alcohol < 5.0 05/25/19 05/25/19 05/25/19 14:40 14:45 14:45 WBC RBC Hgb Hct MCV MCH MCHC RDW Plt Count MPV Neut # (Auto) Lymph # (Auto) Carlton # (Auto) Eos # (Auto) Baso # (Auto) Absolute Nucleated RBC Nucleated RBC % Sodium Potassium Chloride Carbon Dioxide Anion Gap BUN Creatinine Estimated GFR (MDRD) Glucose Calcium Total Bilirubin AST ALT Alkaline Phosphatase Troponin I High Sens Total Protein Albumin Globulin Albumin/Globulin Ratio Lipase TSH 1.79 Urine Color YELLOW Urine Clarity CLEAR Urine pH 6.0 Ur Specific Mobile 1.025 Urine Protein NEGATIVE Urine Glucose (UA) NEGATIVE Urine Ketones NEGATIVE Urine Occult Blood NEGATIVE Urine Nitrite NEGATIVE Urine Bilirubin NEGATIVE Urine Urobilinogen 0.2 (NORMAL) Ur Leukocyte Esterase NEGATIVE Urine RBC 0-5 Urine WBC 0-3 Ur Squamous Epith Cells NONE SEEN Urine Bacteria None Seen Urine Culture Comments NOT INDICATED Urine Opiates Screen NEGATIVE Ur Oxycodone Screen NEGATIVE Urine Methadone Screen NEGATIVE Ur Propoxyphene Screen NEGATIVE Ur Barbiturates Screen NEGATIVE Ur Tricyclics Screen POSITIVE H Ur Phencyclidine Scrn NEGATIVE Ur Amphetamine Screen NEGATIVE U Methamphetamines Scrn NEGATIVE U Benzodiazepines Scrn NEGATIVE Urine Cocaine Screen NEGATIVE U Cannabinoids Screen NEGATIVE Ethyl Alcohol - Rads (name of study) CT Head WO Radiology: Other (No acute intracranial abnormality. Cerebral volume loss greater than expected for age and progressed since 2013) CXR Radiology: Other (Potential opacities in the left lower chest with probable pleu ral calcification) PD MEDICAL DECISION MAKING - ED course Complexity details: considered differential (Seizure, dysrhythmia, electrolyte abnormality, infection, syncope, ACS) ED course: On arrival patient has unremarkable vital signs, he is somewhat sleepy but opens his eyes and tracks. The exact details of the episode of possible seizure are unclear and I was not able to pin down specifics from any staff member that actually witnessed the event. He does not have signs of tongue biting. It was stated that he was postictal but he did receive Versed prior to me seeing him and this could also be contributing to his sleepiness. His labs are unremarkable - he has a stable anemia, his electrolytes are normal, his urine is negative for infection. Alcohol level is negative and he is in a supervised care facility where he has not drank recently. He does not have signs of alcohol withdrawal. CT scan of his head is unrevealing and shows no acute intracranial abnormality, his chest x-ray shows subtle left lower lobe consolidation but he has no cough, no shortness of breath, oxygen saturation is normal and I do not see clinical signs of a pneumonia, he has had no respiratory symptoms. His troponin is negative and his EKG does not show convincing signs of ischemia or dysrhythmia. I spoke with [facility] neurology and they state that since is unclear exactly what this episode was, and additionally he has dementia which could be worse if he is started on antiepileptic medication, they recommend not starting anything at this time. His new trazodone is unlikely to be a precipitating factor of seizures. They state that an MRI brain with and without contrast could be obtained to rule out other cause of his seizure. I called and spoke with patient's son Vargas, discussed the situation and our results and asked about patient's goals of care. He states the patient is comfort measures only and his POLST does reflect this as well. Vargas does not think that invasive testing or admission to the hospital for more testing or an MRI is in the patient's wishes or best interest at this time, and I am in agreement. Speaking to patient's son and staff from [facility], his baseline level of functioning is not particularly high, and the wide area network administrator from [facility] evaluated him in person and states that p atient is now back to his baseline. I discussed with the [facility] staff as well as with patient's son that if he is having any recurrent seizures, or changes in his mental status or other concerning symptoms he should return to the emergency department. They are in agreement and patient was discharged home. Departure - Departure Disposition: 01 Home, Self Care Clinical Impression: Seizure-like activity Condition: Good Follow-Up: Muna Larry MD [Primary Care Provider] - Within 3 Days Comments: Willi was seen today for seizure-like activity. His labs are reassuring, his hemoglobin was a tiny bit low but it is actually better than it has been in the past. His electrolytes are normal, and his head scan did not show any big new obvious abnormalities, he does have some progression of the age-related changes that have been noted in the past. At this point we are holding off starting a seizure medication as this may cause his dementia and mental function to worsen. If he is having recurrent seizures, passing out, or significant changes to his mental status, please bring him back to the emergency department. Otherwise he should follow-up with his primary care provider soon as possible and Consider establishing with a neurologist. Further testing such as an MRI could be considered if they are in line with his goals of care. Discharge Date/Time: 05/25/19 17:15
[2019-05-25 14:51] LABS: BASOPHILS % (AUTO) 0.5 %; EOSINOPHILS # (AUTO) 0.1 10^3/uL (0.0-0.7); EOSINOPHILS % (AUTO) 1.3 %; HGB - HEMOGLOBIN 12.5 g/dL (14.0-18.0); LYMPHOCYTES % (AUTO) 11.8 %; MEAN CORPUSCULAR VOLUME 96.9 fL (80.0-94.0); MEAN PLATELET VOLUME 9.7 fL (7.4-11.4); MONOCYTES # (AUTO) 0.5 10^3/uL (0.0-1.0); MONOCYTES % (AUTO) 5.9 %; NEUTROPHILS % (AUTO) 79.1 %; PLT - PLATELET COUNT 278 10^3/uL (130-450); RED BLOOD COUNT 3.91 10^6/uL (4.70-6.10); RED CELL DISTRIBUTION WIDTH 13.6 % (12.0-15.0); WHITE BLOOD COUNT 8.8 x10^3/uL (4.8-10.8)
[2019-05-25 14:53] LABS: MUDS CUTOFF CONCENTRATIONS CUTOFF CONC BELOW:
[2019-05-25 14:55] LABS: BILIRUBIN,URINE NEGATIVE (NEGATIVE); GLUCOSE, URINE (UA) NEGATIVE (NEGATIVE); KETONES,URINE (UA) NEGATIVE (NEGATIVE); LEUKOCYTE ESTERASE, URINE NEGATIVE (NEGATIVE); NITRITE,URINE NEGATIVE (NEGATIVE); OCCULT BLOOD,URINE NEGATIVE (NEGATIVE); PROTEIN,URINE NEGATIVE (NEGATIVE); UROBILINOGEN,URINE 0.2 (NORMAL) E.U./dL (NORMAL)
[2019-05-25 15:03] LABS: ALBUMIN 4.4 g/dL (3.2-5.5); ALBUMIN/GLOBULIN RATIO 1.5 (1.0-2.2); ALKALINE PHOSPHATASE 53 IU/L (42-121); ALT ALANINE AMINOTRANSFERASE 17 IU/L (10-60); AST ASPARTATE AMINOTRANSFERASE 26 IU/L (10-42); BILIRUBIN,TOTAL 0.6 mg/dL (0.2-1.0); BUN - BLOOD UREA NITROGEN 16 mg/dL (6-20); CALCIUM 9.4 mg/dL (8.5-10.3); CARBON DIOXIDE - CO2 28 mmol/L (21-32); CHLORIDE 104 mmol/L (101-111); CREATININE 0.9 mg/dL (0.6-1.2); GFR - MDRD 81 (>89); GLUCOSE 121 mg/dL (70-100); LIPASE 25 U/L (22-51); SODIUM 141 mmol/L (135-145); TOTAL PROTEIN 7.4 g/dL (6.7-8.2)
[2019-05-25 15:05] LABS: AMPHETAMINE SCREEN,URINE NEGATIVE (NEGATIVE); BACTERIA,URINE None Seen /HPF (None Seen); BENZODIAZEPINES SCREEN, URINE NEGATIVE (NEGATIVE); CLARITY,URINE CLEAR (CLEAR); COCAINE SCREEN URINE NEGATIVE (NEGATIVE); METHADONE SCREEN, URINE NEGATIVE (NEGATIVE); METHAMPHETAMINES SCREEN, URINE NEGATIVE (NEGATIVE); OPIATE SCREEN, URINE NEGATIVE (NEGATIVE); OXYCODONE SCREEN, URINE NEGATIVE (NEGATIVE); PROPOXYPHENE SCREEN, URINE NEGATIVE (NEGATIVE); RBC,URINE 0-5 /HPF (0-5); SQUAMOUS EPITHELIAL CELL,UR NONE SEEN (<= Few); TRICYCLIC ANTIDEPRESSANT,URINE POSITIVE (NEGATIVE)
--- NOTE | 2019-05-25 15:08 | XRAY Report ---
Reason: JOHN Pack Procedure Date: 05/25/2019 Accession Number: [id number] / [id number] Procedure: XR - Chest 1 View X-Ray CPT Code: 24826 Final Report FULL RESULT: EXAM: CHEST RADIOGRAPHY EXAM DATE: 05/25/2019 02:26 PM. CLINICAL HISTORY: Seizure, altered mental status. COMPARISON: CHEST 2 VIEW PA/LAT 04/17/2017 8:35 AM. TECHNIQUE: 1 view. FINDINGS: Lungs/Pleura: The lung volumes are diminished. Grid lines overlie the radiograph limiting evaluation. Subtle groundglass opacities overlie the left lower chest suggesting possible consolidation. The pulmonary vasculature is within normal limits. Costochondral calcifications overlie the lower lobes as before. Some probable pleural calcification present at the left base new since prior exam. Mediastinum: Within exam limitations, the cardiomediastinal contour is normal. Other: None. IMPRESSION: 1. Potential subtle left lower lobe consolidation. 2. 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 RADIA
--- NOTE | 2019-05-25 15:20 | CT Report ---
Reason: Altered mental status Procedure Date: 05/25/2019 Accession Number: [id number] / [id number] Procedure: CT - HEAD WO CPT Code: Final Report FULL RESULT: EXAM: CT HEAD EXAM DATE: 05/25/2019 02:22 PM. CLINICAL HISTORY: 79-year-old man with altered mental status. COMPARISON: HEAD W/O 09/20/2013 3:29 PM. TECHNIQUE: Multiaxial CT images were obtained from the foramen magnum to the vertex. Reformats: Sagittal and coronal. IV contrast: None. In accordance with CT protocol optimization, one or more of the following dose reduction techniques were utilized for this exam: automated exposure control, adjustment of mA and/or KV based on patient size, or use of iterative reconstructive technique. FINDINGS: Parenchyma: No evidence of acute infarct, hemorrhage, or mass lesion. Parenchyma demonstrates mild periventricular hypoattenuation, most consistent with sequelae of chronic small vessel ischemic disease and a common finding in this age group. Ventricles and Extra-axial Spaces: The ventricles and cerebral sulci are enlarged, consistent with central cerebral volume loss greater than expected for age and noticeably progressed compared to the 2013 CT. No extra-axial hemorrhage or fluid collection. Orbits: Unremarkable. Sinuses: Mild scattered mucosal thickening is present in the paranasal sinuses. Mastoid air cells are clear. Extracranial Soft Tissues and Bones: Soft tissues are unremarkable. No fractures. IMPRESSION: 1. No acute intracranial abnormality. Specifically, no evidence of acute infarct, hemorrhage, or mass lesion. 2. Cerebral volume loss greater than expected for age and noticeably progressed compared to the 09/20/2013 exam. RADIA
[2019-05-25 16:10] VITALS: BP 148/108
== END 2019-05-25 17:15 | disposition home or self-care (01) ==
LOC: EDUNIT# → EDBD → ED 13:17
DX: R56.9 Unspecified convulsions (principal); F03.90 Unspecified dementia, unspecified severity, without behavioral disturbance, psychotic disturbance, mood disturbance, and anxiety; I49.1 Atrial premature depolarization; D64.9 Anemia, unspecified; I10 Essential (primary) hypertension; F17.200 Nicotine dependence, unspecified, uncomplicated; Z79.82 Long term (current) use of aspirin; Z66 Do not resuscitate
CPT/HCPCS: 36415; 70450; 71045; 80053; 80306; 80320; 81001; 83690; 84443; 84484; 85025; 87086; 93005; 99284; 99285

== ENCOUNTER 2019-09-05 00:46 | Outpatient (CLI) | payer MEDICARE, OTHER | END 2019-09-05 00:47 | disposition critical access hospital (66) | LOC: EMS 00:46 | PROVIDERS: ATTEND Surgery | DX: S01.112A Laceration without foreign body of left eyelid and periocular area, initial encounter (principal); X58.XXXA Exposure to other specified factors, initial encounter; Y92.092 Bedroom in other non-institutional residence as the place of occurrence of the external cause | CPT/HCPCS: A0425; A0429 ==

== ENCOUNTER 2019-09-05 01:03 | Emergency (ER) | payer MEDICARE, OTHER ==
--- NOTE | 2019-09-05 02:38 | ED Physician Documentation ---
PD HPI HEAD INJURY - Stated complaint Stated Complaint: GLF, LEFT EYEBROW LAC - Chief complaint Chief Complaint: Laceration - History obtained from History obtained from: EMS - History of Present Illness Mechanism of head injury: Fell Where head injury occurred: Other ([facility] care) Timing - onset: Today (tonight) Location of injury: Left, Front Contributing factors: No: Anticoagulated Recently seen: Not recently seen - Additional information Additional information: unwitnessed fall at [facility] ([facility]). BIBA. sustained forehead laceration. patient is nonverbal (baseline) Review of Systems Unable to obtain: Dementia PD PAST MEDICAL HISTORY - Past Medical History Past Medical History: Yes Cardiovascular: None, High cholesterol, Atrial fibrillation Respiratory: None Neuro: Dementia Endocrine/Autoimmune: None GI: Pancreatitis : None HEENT: None Psych: None Musculoskeletal: None Derm: None - Past Surgical History Past Surgical History: Yes HEENT: Tonsil/Adenoidectomy - Present Medications Home Medications: Ambulatory Orders Medication Instructions Recorded Confirmed Acetaminophen 650 mg PO BID #30 04/19/17 09/05/19 Aspirin Chewable [St Patricio 81 mg PO DAILY #30 04/19/17 09/05/19 Aspirin] Pnv No.95/Ferrous Fum/Folic AC 1 tab PO DAILY #30 04/19/17 09/05/19 [ Tablet] Quetiapine Fumarate 50 mg PO QPM #30 04/19/17 09/05/19 Tamsulosin [Flomax] 0.4 mg PO DAILY #30 04/19/17 09/05/19 Bisacodyl Supp [Dulcolax Supp] 10 mg [place] DAILY PRN 09/05/19 09/05/19 Loperamide HCl [Imodium A-D] 2 mg PO DAILY PRN 09/05/19 09/05/19 Magnesium Hydroxide [Milk of 5 ml PO PRN 09/05/19 Magnesia] Trazodone HCl 50 mg PO QPM 09/05/19 09/05/19 - Allergies Allergies/Adverse Reactions: Allergies Allergy/AdvReac Type Severity Reaction Status Date / Time No Known Drug Allergies Allergy Verified 09/05/19 01:28 - Social History Does the pt smoke?: Yes Smoking Status: Current every day smoker Does the pt drink ETOH?: Yes Does the pt have substance abuse?: No - Immunizations Immunizations are current?: Yes - POLST Patient has POLST: Yes POLST Status: DNR (antibioitics ok.) PD ED PE NORMAL - Vitals Vital signs reviewed: Yes - General General: No acute distress, Well developed/nourished, Other (nonverbal, does not follow commands) - HEENT HEENT: PERRL, Moist mucous membranes - Cardiac Cardiac: RRR - Respiratory Respiratory: No respiratory distress, Clear bilaterally - Extremities Extremities: No deformity, No tenderness to palpate, No edema PD ED PE EXPANDED - HEENT HEENT Visual: 1 - laceration (3.5 cm length) Results - Vitals Vitals: Vital Signs - 24 hr 09/05/19 09/05/19 09/05/19 01:08 01:30 02:45 Temperature 37.1 C Heart Rate 75 90 71 Respiratory 17 14 12 Rate Blood Pressure 138/77 H 120/81 H 123/74 O2 Saturation 97 94 99 09/05/19 09/05/19 09/05/19 04:05 04:41 05:48 Temperature 37.1 C Heart Rate 65 61 74 Respiratory 15 16 18 Rate Blood Pressure 128/77 115/65 102/72 O2 Saturation 98 96 98 09/05/19 05:52 Temperature 36.8 C Heart Rate 83 Respiratory 16 Rate Blood Pressure 102/72 O2 Saturation 97 Oxygen O2 Source [Without Activity] Room air O2 Source [With Activity] Room air O2 Source Room air - Rads (name of study) CTH Radiology: Prelim report reviewed, See rad report CT cervical spine Radiology: Prelim report reviewed, See rad report Procedures - Laceration (location) Face left Length in cm: 3.5 Wound type: Linear Neurovascular status: Sensory intact, Motor intact, Vascular intact Tendon involvement: Tendon intact Anesthesia: Lidocaine 1% Wound Preparation: Chlorhexadine, Irrigated copiously NS, Wound explored Skin layer closure: Nylon, Running, Sutures - enter # (4-0) Other: Patient tolerated well, No complications, Neurovascular intact, Dressing applied Complexity: Simple PD MEDICAL DECISION MAKING - ED course Complexity details: reviewed results, re-evaluated patient, considered differential Departure - Departure Disposition: 01 Home, Self Care Clinical Impression: Laceration Head injury Qualifiers: Encounter type: initial encounter Qualified Code(s): S09.90XA - Unspecified injury of head, initial encounter Condition: Good Instructions: ED Head Injury Closed, ED Laceration Scalp Stitch Or Stap Follow-Up: Muna Larry MD [Primary Care Provider] - Comments: Follow up with your primary care provider in 7-10 days for removal of the sutures Discharge Date/Time: 09/05/19 05:54
[2019-09-05] MEDS ORDERED: LIDOCAINE 1% 2 ML VIAL SUBQ STA (03:06)
--- NOTE | 2019-09-05 04:14 | CT Report ---
Reason: fall, head injury, dementia Procedure Date: 09/05/2019 Accession Number: [id number] / [id number] Procedure: CT - HEAD WO CPT Code: Final Report FULL RESULT: EXAM: CT HEAD EXAM DATE: 09/05/2019 04:03 AM. CLINICAL HISTORY: Fall, head injury, dementia. COMPARISON: HEAD W/O 05/25/2019 2:20 PM. TECHNIQUE: Multiaxial CT images were obtained from the foramen magnum to the vertex. Reformats: Sagittal and coronal. IV contrast: None. In accordance with CT protocol optimization, one or more of the following dose reduction techniques were utilized for this exam: automated exposure control, adjustment of mA and/or KV based on patient size, or use of iterative reconstructive technique. FINDINGS: Parenchyma: No intraparenchymal hemorrhage. No evidence of mass, midline shift, or CT findings of infarction. Bone-white differentiation is distinct. Chronic small vessel ischemic changes are again seen in the white matter. Extraaxial Spaces: Normal for age. No subdural or epidural collections identified. Ventricles: Enlarged secondary to age-related volume loss. Unchanged in size since the prior exam. Sinuses and Orbits: Mild mucosal thickening in the maxillary and frontal sinuses and ethmoid air cells. The mastoid air cells are clear. The orbits are within normal limits. Bones: No evidence of fracture or calvarial defect. Other: None. IMPRESSION: No acute intracranial abnormalities. Enlarged lateral ventricles, likely related to cerebral volume loss, and unchanged in size compared to the prior exam. RADIA
--- NOTE | 2019-09-05 04:33 | CT Report ---
Reason: fall, head injury, dementia Procedure Date: 09/05/2019 Accession Number: [id number] / [id number] Procedure: CT - CERVICAL SPINE WO CPT Code: Final Report FULL RESULT: EXAM: CT CERVICAL SPINE WITHOUT CONTRAST DATE: 09/05/2019 04:05 AM. HISTORY: Fall, head injury, dementia. COMPARISONS: HEAD WO 09/05/2019 3:51 AM. TECHNIQUE: Thin-section axial images were acquired of the cervical spine without contrast. Post-processing: Coronal and sagittal reformats. Other: None. In accordance with CT protocol optimization, one or more of the following dose reduction techniques were utilized for this exam: automated exposure control, adjustment of mA and/or KV based on patient size, or use of iterative reconstructive technique. FINDINGS: Alignment: Grade 1 anterolisthesis at C7 on T1. No scoliosis. Bones: No acute fracture or bone lesion. Interspace Levels/Facets: C1-C2: Unremarkable. C2-C3: Unremarkable. C3-C4: Disk space narrowing and left facet hypertrophy. Severe left neuroforaminal stenosis. C4-C5: Disk space narrowing with left facet hypertrophy. Severe left neuroforaminal stenosis. C5-C6: Severe disk space narrowing with posterior disk osteophyte complex and bilateral facet hypertrophy. Moderate central canal stenosis, severe right neuroforaminal stenosis, moderate left neuroforaminal stenosis. C6-C7: Severe disk space narrowing with posterior disk osteophyte complex and bilateral facet hypertrophy. Severe right and moderate left neuroforaminal stenosis. C7-T1: Disk space narrowing. Musculature: Normal. No fatty atrophy. Other: The paravertebral and prevertebral soft tissues are unremarkable. The lung apices are clear. IMPRESSION: No acute fracture or subluxation. Multilevel degenerative changes, greatest at C5-C6 and C6-C7. RADIA
[2019-09-05] MEDS: BACITRACIN ZINC OINT 1 PACKET TOP STA (05:08)
[2019-09-05 05:49] VITALS: BP 102/72
== END 2019-09-05 05:54 | disposition home or self-care (01) ==
LOC: EDUNIT# → ED 01:03
DX: S01.81XA Laceration without foreign body of other part of head, initial encounter (principal); S09.90XA Unspecified injury of head, initial encounter; W19.XXXA Unspecified fall, initial encounter; Y92.199 Unspecified place in other specified residential institution as the place of occurrence of the external cause; F03.90 Unspecified dementia, unspecified severity, without behavioral disturbance, psychotic disturbance, mood disturbance, and anxiety; F17.200 Nicotine dependence, unspecified, uncomplicated; Z66 Do not resuscitate
CPT/HCPCS: 12013; 70450; 72125; 99281; 99284; A9270

== ENCOUNTER 2019-09-05 05:54 | Outpatient (CLI) | payer MEDICARE, OTHER | END 2019-09-05 05:55 | disposition home or self-care (01) | LOC: EMS 05:54 | PROVIDERS: ATTEND Surgery | DX: S01.112A Laceration without foreign body of left eyelid and periocular area, initial encounter (principal); F03.90 Unspecified dementia, unspecified severity, without behavioral disturbance, psychotic disturbance, mood disturbance, and anxiety; R53.81 Other malaise; W18.30XA Fall on same level, unspecified, initial encounter | CPT/HCPCS: A0425; A0428 ==

== ENCOUNTER 2019-10-06 08:37 | Outpatient (CLI) | payer MEDICARE, OTHER | END 2019-10-06 08:38 | disposition critical access hospital (66) | LOC: EMS 08:37 | PROVIDERS: ATTEND Surgery | DX: R46.4 Slowness and poor responsiveness (principal); R09.89 Other specified symptoms and signs involving the circulatory and respiratory systems | CPT/HCPCS: A0425; A0429 ==

== ENCOUNTER 2019-10-06 08:56 | Emergency (ER) | payer MEDICARE, OTHER ==
--- NOTE | 2019-10-06 09:23 | ED Physician Documentation ---
History of Present Illness - Stated complaint Stated Complaint: ALOC - History obtained from History obtained from: EMS - Additonal information Additional information: Patient is brought to the emergency department by EMS after being found to have an episode in the dining room this morning of seizure-like activity. According to the nurse from patient's care facility, the patient had seem like his normal self this morning but while at the dining table, suddenly let out a cry and was noted to become unconscious. Nurse noted that the patient's legs were shaking at that time. Patient did not end up waking up and EMS was called. Nurse states that they did call the patient's son who authorized the transport. According to the patient's son, they would like to have testing done on the patient, although the patient's advance directive states "DNR with comfort measures only". Patient son clarifies that actually, and they just do not want drastic measures to be taken if the patient is "really going downhill." Patient is not able to offer any information for himself. Review of Systems Unable to obtain: Unresponsive, AMS, Dementia PD PAST MEDICAL HISTORY - Past Medical History Cardiovascular: None, High cholesterol, Atrial fibrillation Respiratory: None Neuro: Dementia Endocrine/Autoimmune: None GI: Pancreatitis : None HEENT: None Psych: None Musculoskeletal: None Derm: None - Past Surgical History Past Surgical History: Yes HEENT: Tonsil/Adenoidectomy - Present Medications Home Medications: Ambulatory Orders Medication Instructions Recorded Confirmed Acetaminophen 650 mg PO BID #30 04/19/17 09/05/19 Aspirin Chewable [St Patricio 81 mg PO DAILY #30 04/19/17 09/05/19 Aspirin] Pnv No.95/Ferrous Fum/Folic AC 1 tab PO DAILY #30 04/19/17 09/05/19 [ Tablet] Tamsulosin [Flomax] 0.4 mg PO DAILY #30 04/19/17 09/05/19 Bisacodyl Supp [Dulcolax Supp] 10 mg ID DAILY PRN 09/05/19 09/05/19 Loperamide HCl [Imodium A-D] 2 mg PO DAILY PRN 09/05/19 09/05/19 Magnesium Hydroxide [Milk of 5 ml PO PRN 09/05/19 Magnesia] Trazodone HCl 50 mg PO QPM 09/05/19 09/05/19 Quetiapine Fumarate 25 mg PO QPM 10/06/19 - Allergies Allergies/Adverse Reactions: Allergies Allergy/AdvReac Type Severity Reaction Status Date / Time No Known Drug Allergies Allergy Verified 10/06/19 13:47 - Social History Does the pt smoke?: Yes Smoking Status: Current every day smoker Does the pt drink ETOH?: Yes Does the pt have substance abuse?: No - Immunizations Immunizations are current?: Yes - POLST Patient has POLST: Yes POLST Status: DNR (antibioitics ok.) PD ED PE NORMAL - Vitals Vital signs reviewed: Yes - General General: No acute distress, Well developed/nourished, Other (Patient lays in the bed with his eyes closed.) - HEENT HEENT: Atraumatic, PERRL, Moist mucous membranes - Neck Neck: Other (Grossly normal) - Cardiac Cardiac: RRR, No murmur, Strong equal pulses - Respiratory Respiratory: No respiratory distress, Clear bilaterally - Abdomen Abdomen: Soft, Non tender, Non distended - Derm Derm: Normal color, Warm and dry, No rash - Extremities Extremities: No deformity - Neuro Neuro: Other (Patient moves all 4 extremities and has 5+ strength in both hands grossly. He localizes to touch and grabs examiner's hands and arms with 5+ strength on both sides. Patient has no facial droop. His pupils are equal round and reactive to light. Cranial nerves II through XII are grossly intact. The patient does not verbalize at this time.He is not drooling.) - Psych Psych: Normal mood, Normal affect Results - Vitals Vitals: Oxygen O2 Source [Without Activity] Room air O2 Source [With Activity] Room air O2 Source Room air - Labs Labs: Laboratory Tests 10/06/19 10/06/19 10/06/19 10:15 12:25 12:25 WBC 10.7 RBC 3.99 L Hgb 12.3 L Hct 38.5 L MCV 96.5 H MCH 30.8 MCHC 31.9 L RDW 13.7 Plt Count 269 MPV 10.3 Neut # (Auto) 9.0 H Lymph # (Auto) 1.0 L [place] # (Auto) 0.6 Eos # (Auto) 0.0 Baso # (Auto) 0.1 Absolute Nucleated RBC 0.00 Nucleated RBC % 0.0 Sodium 137 Potassium 3.6 Chloride 102 Carbon Dioxide 25 Anion Gap 10.0 BUN 18 Creatinine 0.8 Estimated GFR (MDRD) 93 Glucose 88 Calcium 8.9 Total Bilirubin 0.8 AST 26 ALT 18 Alkaline Phosphatase 70 Total Protein 7.6 Albumin 4.4 Globulin 3.2 Albumin/Globulin Ratio 1.4 Lipase 29 Urine Color YELLOW Urine Clarity CLEAR Urine pH 6.5 Ur Specific [place] 1.015 Urine Protein NEGATIVE Urine Glucose (UA) NEGATIVE Urine Ketones NEGATIVE Urine Occult Blood NEGATIVE Urine Nitrite NEGATIVE Urine Bilirubin NEGATIVE Urine Urobilinogen 0.2 (NORMAL) Ur Leukocyte Esterase NEGATIVE Ur Microscopic Review NOT INDICATED Urine Culture Comments NOT INDICATED PD MEDICAL DECISION MAKING - ED course Complexity details: reviewed old records, reviewed results, re-evaluated patient, considered differential, d/w family ED course: I did speak with the patient's nurse from the [facility], as well as the patient's son, Vargas. I did clarify it not only the history of what happened, but also the advanced directive, which does state "comfort measures only" and that EMS transport should be only for the purpose of advancing the patient's comfort. I did address these things with the patient's son, who stated that he in fact did want testing done to find out what was wrong with the patient and that what they really intended was that the patient not be subjected to interventions if his condition was rapidly worsening. I have explained to the son that it would be best if the paperwork reflected this and was changed to DNR with "limited interventions". According to the son stated wish, the patient was worked up with labs, urinalysis, and CT scan of the head, all of which were unremarkable. The pt did become more responsive throughout his stay in the ED, though his baseline is unclear. His vital signs were stable. I felt that given his negative work-up and DNR/comfort status, that he should be transferred back to his care facility. Departure - Departure Disposition: 01 Home, Self Care Clinical Impression: Altered mental status Qualifiers: Altered mental status type: delirium Qualified Code(s): R41.0 - Disorientation, unspecified Condition: Stable Instructions: ED Altered Loc Comments: Extensive work-up, including labs, urinalysis, and CT scan of the head are all unremarkable. Is not clear what has caused Gonzales's episode this morning, but there is no evidence of an emergent condition. Please continue to provide comfort care for Edward as per usual protocol. Discharge Date/Time: 10/06/19 14:40
--- NOTE | 2019-10-06 10:21 | CT Report ---
Reason: ALOC Procedure Date: 10/06/2019 Accession Number: [id number] / [id number] Procedure: CT - HEAD WO CPT Code: Final Report FULL RESULT: EXAM: CT HEAD EXAM DATE: 10/06/2019 10:12 AM. CLINICAL HISTORY: 79-year-old man with altered mental status. COMPARISON: CERVICAL SPINE WO 09/05/2019 3:59 AM HEAD WO 09/05/2019 3:51 AM. TECHNIQUE: Multiaxial CT images were obtained from the foramen magnum to the vertex. Reformats: Sagittal and coronal. IV contrast: None. In accordance with CT protocol optimization, one or more of the following dose reduction techniques were utilized for this exam: automated exposure control, adjustment of mA and/or KV based on patient size, or use of iterative reconstructive technique. FINDINGS: Parenchyma: No evidence of acute infarct, hemorrhage, or mass lesion. The parenchyma demonstrates mild periventricular hypoattenuation, similar to the 09/05/2019 CT and a common finding in this age group. Ventricles and Extra-axial Spaces: Ventricles are symmetric but enlarged, unchanged and consistent with cerebral volume loss slightly greater than expected for age. No extra-axial hemorrhage or fluid collection. Orbits: Unremarkable. Sinuses: Mild scattered mucosal thickening is present in the paranasal sinuses. Mastoid air cells are clear. Extracranial Soft Tissues and Bones: Soft tissues are unremarkable. No fractures. IMPRESSION: 1. No acute intracranial abnormality. Specifically, no evidence of acute infarct, hemorrhage, or mass lesion. 2. Mild white matter changes, similar to the 09/05/2019 exam and a common finding in this age group. 3. Cerebral volume loss, slightly greater than expected for age but stable compared to the prior exam. RADIA
[2019-10-06 10:43] LABS: BILIRUBIN,URINE NEGATIVE (NEGATIVE); GLUCOSE, URINE (UA) NEGATIVE (NEGATIVE); KETONES,URINE (UA) NEGATIVE (NEGATIVE); LEUKOCYTE ESTERASE, URINE NEGATIVE (NEGATIVE); NITRITE,URINE NEGATIVE (NEGATIVE); OCCULT BLOOD,URINE NEGATIVE (NEGATIVE); PH,URINE 6.5 PH (5.0-7.5); PROTEIN,URINE NEGATIVE (NEGATIVE); UROBILINOGEN,URINE 0.2 (NORMAL) E.U./dL (NORMAL)
[2019-10-06 10:46] LABS: CLARITY,URINE CLEAR (CLEAR)
[2019-10-06 12:57] LABS: BASOPHILS # (AUTO) 0.1 10^3/uL (0.0-0.1); BASOPHILS % (AUTO) 0.6 %; EOSINOPHILS % (AUTO) 0.4 %; HGB - HEMOGLOBIN 12.3 g/dL (14.0-18.0); LYMPHOCYTES % (AUTO) 9.6 %; MEAN CORPUSCULAR HEMOGLOBIN 30.8 pg (27.0-31.0); MEAN CORPUSCULAR HGB CONC 31.9 g/dL (32.0-36.0); MEAN CORPUSCULAR VOLUME 96.5 fL (80.0-94.0); MEAN PLATELET VOLUME 10.3 fL (7.4-11.4); MONOCYTES # (AUTO) 0.6 10^3/uL (0.0-1.0); MONOCYTES % (AUTO) 5.2 %; NEUTROPHILS % (AUTO) 83.9 %; PLT - PLATELET COUNT 269 10^3/uL (130-450); RED BLOOD COUNT 3.99 10^6/uL (4.70-6.10); RED CELL DISTRIBUTION WIDTH 13.7 % (12.0-15.0); WHITE BLOOD COUNT 10.7 x10^3/uL (4.8-10.8)
[2019-10-06 13:07] LABS: ALBUMIN 4.4 g/dL (3.2-5.5); ALBUMIN/GLOBULIN RATIO 1.4 (1.0-2.2); BILIRUBIN,TOTAL 0.8 mg/dL (0.2-1.0); CALCIUM 8.9 mg/dL (8.5-10.3); CREATININE 0.8 mg/dL (0.6-1.2); TOTAL PROTEIN 7.6 g/dL (6.7-8.2)
[2019-10-06 14:39] VITALS: BP 137/81
== END 2019-10-06 14:40 | disposition home or self-care (01) ==
LOC: EDUNIT# → ED 08:56
DX: R41.0 Disorientation, unspecified (principal); F03.90 Unspecified dementia, unspecified severity, without behavioral disturbance, psychotic disturbance, mood disturbance, and anxiety; F17.200 Nicotine dependence, unspecified, uncomplicated; Z66 Do not resuscitate
CPT/HCPCS: 36415; 51701; 70450; 80053; 81001; 81003; 83690; 85025; 87086; 99281; 99284

== ENCOUNTER 2019-10-06 14:43 | Outpatient (CLI) | payer MEDICARE, OTHER | END 2019-10-06 14:44 | disposition home or self-care (01) | LOC: EMS 14:43 | PROVIDERS: ATTEND Surgery | DX: R55 Syncope and collapse (principal) | CPT/HCPCS: A0425; A0428 ==

== ENCOUNTER 2019-12-30 11:30 | Outpatient (CLI) | payer MEDICARE, OTHER ==
--- NOTE | 2019-12-30 17:06 | CONSULTATION NOTE ---
Palliative Care Follow Up - Referral Referring Provider: Dr. Muna Larry Time of Visit: [id number] Referral setting: Assisted living Referral Reason: Seizure/Dementia/Advanced Care Planning - Information Sources Records reviewed: Previous records reviewed History/Review of Systems obtained from: Family (son/DPOA Vargas), Nursing Exam limitations: Clinical condition (Advanced dementia) Medications/Allergies - Medications Home Medications: Ambulatory Orders Medication Instructions Recorded Confirmed Acetaminophen 650 mg PO BID #30 04/19/17 09/05/19 Aspirin Chewable [St Patricio 81 mg PO DAILY #30 04/19/17 09/05/19 Aspirin] Pnv No.95/Ferrous Fum/Folic AC 1 tab PO DAILY #30 04/19/17 09/05/19 [ Tablet] Tamsulosin [Flomax] 0.4 mg PO DAILY #30 04/19/17 09/05/19 Bisacodyl Supp [Dulcolax Supp] 10 mg NE DAILY PRN 09/05/19 09/05/19 Loperamide HCl [Imodium A-D] 2 mg PO DAILY PRN 09/05/19 09/05/19 Magnesium Hydroxide [Milk of 5 ml PO PRN 09/05/19 Magnesia] Trazodone HCl 50 mg PO QPM 09/05/19 09/05/19 Quetiapine Fumarate 25 mg PO QPM 10/06/19 - Allergies Allergies/Adverse Reactions: Allergies Allergy/AdvReac Type Severity Reaction Status Date / Time No Known Drug Allergies Allergy Verified 10/06/19 13:47
--- NOTE | 2019-12-30 17:13 | CONSULTATION NOTE ---
Palliative Care Consultation - Referral Referring Provider: Dr. Muna Justice Time of Visit: [id number] Referral setting: Assisted living Referral Reason: Seizures/Dementia/FTT - Information Sources Records reviewed: Previous records reviewed History/Review of Systems obtained from: Family (son/ANTHONY Carroll), Nursing Exam limitations: Clinical condition (Advanced Dementia) - History of Present Illness Brief History of Present Illness: This is an 79-year-old gentleman who is seen and evaluated today for initial palliative care [facility] at [facility] due to history of seizures, failure to thrive, and dementia. The patient transitioned to [facility] in 2013. He has had a slow and progressive cognitive decline since that time. The patient's son/D LINDAA, child notes that the patient has had a more significant cognitive and functional decline within the last year. The son reports that the patient no longer recognizes any of his family members. 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 He would consume beer routinely throughout the day with the son unable to further quantify outside of that. The patient began having seizure-like activity in the beginning in May 2019. He was seen and evaluated on initial seizure activity in the emergency room in May [address] scan was performed without evidence of acute abnormality such as infarct, hemorrhage or mass/lesion. The patient has subsequently then had further episodes of seizure activity. He had a unresponsive episode with possible seizure activity in September 2019, seizure activity on 10/16/2019 and last reported seizure 12/10/2019. Typically the patient will present with his seizures and that he will yell out and his eyes will roll back. He then has his whole body shaking that then resulted in lower leg twitching. The length of time varies from seconds to a max reported of appro ximately 8 minutes. The patient then returned to his baseline mentation but is quite fatigued and can take several hours up to 1 day to recover from an episode. He did have evaluation in September 2019 in the emergency room with a head CT that demonstrated no "evidence of acute infarct, hemorrhage or mass lesion." He is on a mechanically altered diet with thick liquids and chopped meats. The patient has also had a gradual weight loss. He is on meal monitoring and consumes approximately 75 to 100% of his meals. In July 2019 his weight was 182.6 and he presently weighs 167.8 pounds. He is offered Ensure if he consumes less than 50% of his meal. The patient is seen in the common area at the dining table. He has a gait belt around his waist. He is essentially nonverbal and does not follow commands. No evidence of acute distress. Medical/Surgical History - Past Medical History Cardiovascular: reports: None, High cholesterol, Atrial fibrillation (intermittent) Respiratory: reports: None Neuro: Dementia Neuro: reports: None, Tremors (essential tremor) Endocrine/Autoimmune: reports: None GI: reports: GERD, Pancreatitis (1995), Other (Cholelithiasis) : reports: None HEENT: reports: None Psych: reports: None Musculoskeletal: reports: None Derm: reports: None MRSA Hx?: No Other Past Medical History: Anemia - Past Surgical History General: reports: Other (bilateral hernia repair) HEENT: reports: Tonsil/Adenoidectomy - Substance History Use: Uses substance without health or social issues: Alcohol (History of alcohol abuse with consuming beer several times throughout the day prior to moving into [facility] in 2013; history of tobacco use) Social History - Living Situation Living arrangement: Assisted living Support System: Patient is . He was born in [place], [place]. He moved to [facility] in 1997. 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 He moved into [facility] in 2013. He has always enjoyed camping. His son is his Vargas [place] contact number [phone]. Family History - Family History Family History: Mother: , Father: Family History Comment/Other: Mother in skilled nursing from natural causes. Son denies a family history of dementia. Medications/Allergies - Medications Home Medications: Ambulatory Orders Medication Instructions Recorded Confirmed Acetaminophen 650 mg PO BID #30 04/19/17 09/05/19 Aspirin Chewable [St Patricio 81 mg PO DAILY #30 04/19/17 09/05/19 Aspirin] Pnv No.95/Ferrous Fum/Folic AC 1 tab PO DAILY #30 04/19/17 09/05/19 [ Tablet] Tamsulosin [Flomax] 0.4 mg PO DAILY #30 04/19/17 09/05/19 Bisacodyl Supp [Dulcolax Supp] 10 mg DE DAILY PRN 09/05/19 09/05/19 Loperamide HCl [Imodium A-D] 2 mg PO DAILY PRN 09/05/19 09/05/19 Magnesium Hydroxide [Milk of 5 ml PO PRN 09/05/19 Magnesia] Trazodone HCl 50 mg PO QPM 09/05/19 09/05/19 Quetiapine Fumarate 25 mg PO QPM 10/06/19 Levetiracetam [Keppra] 12/30/19 - Allergies Allergies/Adverse Reactions: Allergies Allergy/AdvReac Type Severity Reaction Status Date / Time No Known Drug Allergies Allergy Verified 12/30/19 17:43 Review of Systems - Constitutional Constitutional: reports: Weight loss (present .8lb presently.) - Eyes Eyes: denies: Corrective lenses - Ears, Nose & Throat Ears, Nose & Throat: denies: Hearing aids - Cardiovascular Cardiovascular: denies: Edema - Respiratory Respiratory: denies: Cough, Wheezing - Gastrointestinal Gastrointestinal: reports: Good appetite. denies: Constipation, Change in bowel habits, Vomiting - Genitourinary Genitourinary: reports: Incontinence - Musculoskeletal Musculoskeletal: reports: Assistive devices, Transfer issues. denies: Joint pain - Integumentary Integumentary: denies: Rash - Neurological Neurological: reports: General weakness, Memory problems - Psychiatric Psychiatric: denies: Behavior disturbances - Endocrine Endocrine: denies: Hypothyroidism - Hematologic/Lymphatic Hematologic/Lymphatic: reports: Anemia - All Other Systems All Other Systems: reports: Reviewed and negative (ROS limited as patient is a poor historian due to dementia. ROS obtained from caregiver and nursing staff.) Physical Exam - Vital Signs Temperature: 36.5 C Pulse Rate: 83 O2 Saturation: 94 (on RA at rest) Blood Pressure: 109/59 (left wrist cuff) - Physical Exam General Appearance: positive: No acute distress, Alert Eyes Bilateral: positive: PERRL, Other (ectropion to right lower eyelid) ENT: positive: No signs of dehydration Neck: positive: Trachea midline Cardiovascular: positive: Regular rate & rhythm, No murmur Respiratory: positive: No respiratory distress, Breath sounds nml. negative: Wheezes Abdomen: positive: Non-tender, Soft, Nml bowel sounds. negative: Distended Skin: positive: No symptoms Extremities: positive: No pedal edema, Other (moves all extremities) Neurologic/Psychiatric: positive: Disoriented to person, Disoriented to place, Disoriented to time, Unintelligible speech (minimally verbal and mumbled a few words but did not respond to direct questions or commands), Other (No evidence of anxiety or aggitation) Palliative Care - POLST Patient has POLST: Yes POLST Status: DNR, Comfort Measures Performance Status: The patient is able to ambulate without an assistive device holding onto a caregiver with a gait belt in place. No recent falls. He is incontinent of bowel and bladder. He is able to self feed. Minimally verbal. FAST 7B - Palliative Care Discussion: The patient has had a slow, progressive cognitive decline over several years that has heightened and worsened in the last year is well as functional decline. The patient has a longstanding history of alcohol abuse prior to moving into [facility] in 2013. The patient's son/be D POA recognizes the changes that have occurred in the last year as the patient is no longer able to recognize family. The goal presently is for the patient to be comfortable and focus on quality of life. The patient's son reports that the patient was 1 to always live life to the fullest and he would never have wanted to live life this way nor to be a burden. The patient has had reoccurring seizure activity unclear underlying etiology with CT scans performed at least twice that have been negative for an acute in farct, hemorrhage or mass or lesion. Discussed at length with patient's son/D POA, Vargas preventative measures have those the goal is to have the patient remain at [facility] and to avoid hospital transfer as the goal is to focus on comfort. Vargas is open and in agreement to a trial of Keppra for an antiepileptic medication but is hesitant to have available lorazepam as needed for an acute seizure as he is afraid of this impacting the patient's awareness as well as alertness despite education. Reviewed POLST that is on file for the patient's and confirmed to remain as DN AR with comfort measures, use of antibiotics with comfort as goal and no artificial nutrition by tube. Reviewed with son/D POA with the patient's weight loss despite his voracious appetite is due to his underlying dementia and would expect a continued, progressive decline and highlighted eventual need for hospice services and was open to discussion. Results - Lab Results Lab results reviewed: Yes Lab and Imaging Results: 10/06/2019 Sodium 137, potassium 3.6, BUN 18, creatinine 0.8, estimated GFR 93, glucose 88, AST 26, ALT 18, alk phos 70, lipase 29, WBC 10.7, hemoglobin 12.3, hematocrit 38.5%, MCV 96.5, RDW 13.7, platelet 269 Impression and Recommendations - Palliative Care Impression: This is an 79-year-old gentleman who was seen in evaluation today for initial palliative care consultation due to recurrent seizure activity, underlying dementia with progressive decline as F AST 7B, weight loss and failure to thrive. Patient's son/D POA reports that the goal is for the patient to avoid hospital transfer and to have his symptoms manage within the facility of [facility] and focus on comfort and quality of life. Palliative care to continue to build rapport, explore goals of care and provide symptom management and anticipatory guidance. Recommendations/Counseling Done: 1. Seizure. No prior history of seizure activity prior to May 2019. Head CTs performed twice negative for acute underlying abnormality such as an infarct, hemorrhage, or lesion. Unclear if patient's past history of alcoholism is a contributing factor to his seizure activity. Goal is comfort measures and for the patient to remain within the facility. Son is not open at the present time for initiation of PRN lorazepam to use in the acute event of a seizure given the patient's frequency is typically about 1 seizure a month in recent months. Son/D MANOJ is open to a trial of antiepileptic medication after reviewed the purpose, dose and side effects with understanding verbalized. Given the patient is having difficulty swallowing pills will initiate Keppra 100 mg/mL administer 250 mg (2.5 mL (nightly for seizure at prevention x7 days and if no increase sedation or change in condition after 7 days to increase Keppra to 250 mg (2.5 mL's (p.o. twice daily for seizure prevention. Son was reluctant to titrate up to 500 mg of Keppra twice daily. We will see how the patient tolerates initial Keppra dosing and if needed based on seizure activity level and agree dose of Keppra. Continue to monitor. Supportive care. Continue thickened liquids and chopped meats and aspiration precautions. 2. Failure to thrive and weight loss. Patient has had a trending weight loss. Weight loss of 14.8lb since July 2019. Presently on meal monitoring and consuming 75 to 100% of his meals. He is to have an Ensure if he consumes less than 50% of his meal. Request weekly weights with documentation and notify MD/COMMUNITY HEALTH COUNSELOR if plus/-3 pound weight change. Request that weekly weights be sent to COMMUNITY HEALTH COUNSELOR in 4 weeks for review. If continued noting weight trend then would consider initiation of routine Ensure for protein calorie supplementation. 3. Dementia. Chronic. Progressive. Fall precautions. On no disease modifying agents. Presently on quetiapine 25 mg daily and trazodone 50mg nightly. Continue both medications at the present time and consider trial dose reduction in the future if no signs or symptoms of behavioral disturbances. The patient's had advanced age and chronic comorbidities a gradual decline is expected. 4. Advanced care planning. POL reviewed and verified with son/D Vargas ARANDA today as DN AR with comfort measures. The patient was always an active individual and always was present and engaged with life. The patient's son/D POA wishes to focus on comfort measures with avoidance of hospitalization with a focus of care within the facility at [facility]. Began discussion if the patient continues to decline would make recommendation for hospice services when medically appropriate and will continue to build rapport and explore goals of care with the patient's son. Time Spent: CPT 16739 Contacted son/D Vargas ARANDA and explored goals of care, reviewed new medication with purpose and side effects with understanding verbalized and coordination of care with nursing staff preformed. Questions answered and addressed. Disclaimer: The chart note was formulated using voice recognition technology and unfortunately sound alike errors may occur.
== END 2019-12-30 11:31 | disposition home or self-care (01) ==
LOC: PC 11:30
PROVIDERS: ATTEND Nurse Practitioner Family
DX: Z51.5 Encounter for palliative care (principal); F03.90 Unspecified dementia, unspecified severity, without behavioral disturbance, psychotic disturbance, mood disturbance, and anxiety; R56.9 Unspecified convulsions; R62.7 Adult failure to thrive; R53.1 Weakness; R63.4 Abnormal weight loss; Z79.899 Other long term (current) drug therapy; Z79.82 Long term (current) use of aspirin; Z66 Do not resuscitate; Z87.898 Personal history of other specified conditions

== ENCOUNTER 2020-01-12 16:15 | Outpatient (CLI) | payer MEDICARE, OTHER ==
--- NOTE | 2020-01-12 17:45 | CONSULTATION NOTE ---
Palliative Care Follow Up - Referral Referring Provider: Dr. Muna Larry Time of Visit: Initiated visit at 1615 Referral setting: Assisted living Referral Reason: Seizures/Dementia - Information Sources Records reviewed: Previous records reviewed History/Review of Systems obtained from: Caregiver, Nursing Exam limitations: Clinical condition (Advanced Dementia) - History of Present Illness Update Brief HPI Update: This is an 79-year-old gentleman who was seen and evaluated today in follow-up at [facility] in regards to history of seizures and dementia. The patient was noted to begin having seizure-like activity in the beginning of May 2019. He was evaluated in the emergency room in May [address] was performed without evidence of an acute abnormality. He subsequently has had further episodes of seizure activity. Please see detailed HPI from 12/30/2019 for further details. The patient was begun on Keppra 250 mg nightly and after tolerating for 7 days was increased to 250 twice daily. The patient's son was hesitant to have the patient titrated up to 500 mg of Keppra twice daily. The patient has not had any adverse side effects reported by the staff since initiating the Keppra. He has not had any increased sedation or behavioral changes. Nursing reports no seizure activity. He is also not had any recent falls. The patient has had a gradual weight loss and is on meal monitoring. He continues to consume typically 100% of hs meals and is offered an Ensure if he consumes less than 50% of his meals. He weighed 182.6lb in July 2019 and presently weighs 170lbs. He was reported to having a shower today. Patient is seen in bed, without acute distress tapping his left foot. Patient has a past medical history of seizure-like activity, pleural effusions with thoracentesis, intermittent atrial fibrillation, GERD, pancreatitis, cholelithiasis, colon polyps, dementia, essential tremor, hyperlipidemia, anemia, cellulitis to the left lower leg, history of alcohol abuse. Social History - Living Situation Living arrangement: Assisted living Support System: Patient is . He was born in [place], [place]. He moved to [facility] in 1997. [facility]. His son is his Vargas [place] normal contact number [phone]. Medications/Allergies - Medications Home Medications: Ambulatory Orders Medication Instructions Recorded Confirmed Acetaminophen 650 mg PO BID #30 04/19/17 09/05/19 Aspirin Chewable [St Patricio 81 mg PO DAILY #30 04/19/17 09/05/19 Aspirin] Pnv No.95/Ferrous Fum/Folic AC 1 tab PO DAILY #30 04/19/17 09/05/19 [ Tablet] Tamsulosin [Flomax] 0.4 mg PO DAILY #30 04/19/17 09/05/19 Bisacodyl Supp [Dulcolax Supp] 10 mg [place] DAILY PRN 09/05/19 09/05/19 Loperamide HCl [Imodium A-D] 2 mg PO DAILY PRN 09/05/19 09/05/19 Magnesium Hydroxide [Milk of 5 ml PO PRN 09/05/19 Magnesia] Trazodone HCl 50 mg PO QPM 09/05/19 09/05/19 Quetiapine Fumarate 25 mg PO QPM 10/06/19 Levetiracetam [Keppra] 250 mg PO BID 12/30/19 - Allergies Allergies/Adverse Reactions: Allergies Allergy/AdvReac Type Severity Reaction Status Date / Time No Known Drug Allergies Allergy Verified 12/30/19 17:43 Review of Systems - Constitutional Constitutional: reports: Weight loss. denies: Fever - Eyes Eyes: denies: Corrective lenses - Ears, Nose & Throat Ears, Nose & Throat: denies: Hearing aids - Cardiovascular Cardiovascular: denies: Edema - Respiratory Respiratory: denies: Cough - Gastrointestinal Gastrointestinal: reports: Good appetite. denies: Constipation, Vomiting - Genitourinary Genitourinary: reports: Incontinence - Musculoskeletal Musculoskeletal: reports: Assistive devices, Transfer issues. denies: Joint pain - Integumentary Integumentary: denies: Rash - Neurological Neurological: reports: General weakness, Memory problems - Psychiatric Psychiatric: denies: Aggitation - Endocrine Endocrine: denies: Hypothyroidism - Hematologic/Lymphatic Hematologic/Lymphatic: reports: Anemia - All Other Systems All Other Systems: reports: Reviewed and negative (ROS is limited as patient is a poor historian due to dementia. ROS obtained from nursing and caregiver staff.) Physical Exam - Vital Signs Temperature: 36.6 C Pulse Rate: 56 O2 Saturation: 98 (on RA) Blood Pressure: 129/60 (left wrist cuff lying down) - Physical Exam General Appearance: positive: No acute distress, Alert, Other (resting in bed) Eyes Bilateral: positive: Other (ectropion to right lower eyelid) ENT: positive: No signs of dehydration Neck: positive: Trachea midline Cardiovascular: positive: No murmur, Bradycardia Respiratory: positive: No respiratory distress, Breath sounds nml Abdomen: positive: Non-tender, Soft, Nml bowel sounds Skin: positive: No symptoms Extremities: positive: No pedal edema Neurologic/Psychiatric: positive: Disoriented to person, Disoriented to place, Disoriented to time, Unintelligible speech (minimally verbal), Other (No evidence of anxiety or aggitation; tapping his left foot in bed) Palliative Care - POLST Patient has POLST: Yes POLST Status: DNR, Comfort Measures Performance Status: FAST 7B - Palliative Care Discussion: The patient began having seizure activity beginning in May 2019. This has been a reoccurring event with underlying seizure activity without unclear etiology. He has had imaging done that has been negative for any acute underlying abnormality. The patient's son/D POA, Vargas has requested to have comfort measures as the goal. The patient was initiated on a trial of Keppra 250 mg twice daily without any adverse effects noted by the facility staff for prevention of seizure activity. The patient has not had any recent seizure activity since initiating the Keppra. The patient's son/D POA is aware that the Keppra is not at the ideal dose typically of 500 mg twice daily as he reported concerns with the patient's alert this level. He is aware that if the patient were to develop any further seizure activity then would need to readdress the dosing of Keppra for antiepileptic management with comfort as goal. Impression and Recommendations - Palliative Care Impression: This is an 79-year-old man who is seen in follow-up today for history of recurrent seizure activity and dementia as FAST 7B. The patient has tolerated initiation of Keppra for prevention of epileptic activity without reported adverse effects from facility staff. The patient's son/D POA has reported the goal to be avoiding hospital transfer and to have symptoms manage within the facility with a focus on comfort. Palliative care to continue to build rapport, provide symptom management and anticipatory guidance. Recommendations/Counseling Done: 1. Seizure. No prior history of seizure activity before May 2019. Head CTs performed x2 were negative for acute underlying abnormality such as infarct, hemorrhage, or lesion. Patient does have a past history of alcoholism prior to [facility]. Goal is for comfort measures. Has tolerated initiation of Keppra 100 mg/ML administered as 250 mg twice daily for seizure prevention. Son/D MANOJ is aware that ideal dosing begins at 500 mg of Keppra twice daily and will continue at the present time at 250 mg twice daily but if needed agreeable to titrate dose of Keppra based on the patient's response and seizure activity. Continue thickened liquids and chopped meats with aspiration precautions. Continue to monitor. 2. Dementia. Chronic. Progressive. Fall precautions. On no disease modifying agents. Presently on quetiapine 25 mg daily and trazodone 50 mg nightly. Continue trial dose reduction in the future if no signs or symptoms of behavioral disturbances. Given the patient's advanced age and chronic comorbidities a gradual decline as expected. 3. Advanced care planning. POLST as DN AR with comfort measures. Time Spent: CPT 35479 POC reviewed with nursing staff with questions answered and addressed. Contacted patient's son/Vargas CRUZ at [phone] and reviewed POC with agreement and questions answered and addressed. Disclaimer: The chart note was formulated using voice recognition technology and unfortunately sound alike errors may occur.
== END 2020-01-12 16:16 | disposition home or self-care (01) ==
LOC: PC 16:15
PROVIDERS: ATTEND Nurse Practitioner Family
DX: Z51.5 Encounter for palliative care (principal); R56.9 Unspecified convulsions; F03.90 Unspecified dementia, unspecified severity, without behavioral disturbance, psychotic disturbance, mood disturbance, and anxiety; R63.4 Abnormal weight loss; R53.1 Weakness; R32 Unspecified urinary incontinence; Z79.899 Other long term (current) drug therapy; Z79.82 Long term (current) use of aspirin; Z66 Do not resuscitate

== ENCOUNTER 2020-04-09 14:20 | Outpatient (CLI) | payer MEDICARE, OTHER ==
--- NOTE | 2020-04-09 15:57 | CONSULTATION NOTE ---
Palliative Care Follow Up - Referral Referring Provider: Dr. Muna Larry Time of Visit: Initated 1420 Referral setting: Assisted living Referral Reason: Dementia/History of seizures - Information Sources Records reviewed: Previous records reviewed History/Review of Systems obtained from: Caregiver, Nursing Exam limitations: Clinical condition (Advanced dementia and nonverbal) - History of Present Illness Update Brief HPI Update: This is an 80-year-old man who is seen and evaluated in follow-up [facility] and follow-up regarding advanced dementia and history of seizure activity. The patient was noted to begin having seizure-like activity in the beginning of May 2019. He was evaluated in the emergency department in May 2019 and had a head CT performed with out evidence of an acute abnormality. He subsequently had further episodes of seizure activity. Please see detailed HPI from 12/30/2019 for further details. Patient was begun on Keppra 25 mg nightly and after tolerating for 7 days was increased to Keppra 25 mg twice daily December 2019. He has not demonstrated any signs or symptoms of adverse effects and no repeated seizure activity reported by staff. The patient has had 3 falls since last evaluation. He lost his balance and fell to the floor on 02/07 without noted injury. He was found lying on his side in the restroom on 02/13 with no visible injury. And he was found again on the floor without noted injury on 03/09. He continues to be able to ambulate by holding onto a caregiver with a gait belt in place. Staff denying any acute behavioral concerns. The patient had previously demonstrated a gradual weight loss and continues to be on meal monitoring. He is typically consuming 75 to 100% of his meals. He is offered an Ensure daily for consumption. He also has available and Ensure if he consumes less than 50% of his meals and upon review of MAR this is improved. He presently weighs 170.4 pounds and previously weighed 182.6 pounds in July 2019. Patient is seen in the common area sitting in a chair with no visible distress. He is moving his right hand like he is conducting an orchestra. He is nonverbal today in regards to evaluation and interaction. Past Medical History: Patient has a past medical history of seizure-like activity, pleural effusions with thoracentesis, intermittent atrial fibrillation, GERD, bronchial otitis, cholelithiasis, colon polyps, dementia, essential tremor, hyperlipidemia, anemia , cellulitis to the left lower leg, history of alcohol abuse. Social History - Living Situation Living arrangement: Assisted living Support System: Patient is . He moved to [facility] in 1997. He was born in [place], [place]. [facility]. His son is his DPVargas [place] contact number [phone]. Medications/Allergies - Medications Home Medications: Ambulatory Orders Medication Instructions Recorded Confirmed Acetaminophen 650 mg PO BID #30 04/19/17 09/05/19 Aspirin Chewable [St Patricio 81 mg PO DAILY #30 04/19/17 09/05/19 Aspirin] Pnv No.95/Ferrous Fum/Folic AC 1 tab PO DAILY #30 04/19/17 09/05/19 [ Tablet] Tamsulosin [Flomax] 0.4 mg PO DAILY #30 04/19/17 09/05/19 Bisacodyl Supp [Dulcolax Supp] 10 mg [place] DAILY PRN 09/05/19 09/05/19 Loperamide HCl [Imodium A-D] 2 mg PO DAILY PRN 09/05/19 09/05/19 Magnesium Hydroxide [Milk of 5 ml PO PRN 09/05/19 Magnesia] Trazodone HCl 50 mg PO QPM 09/05/19 09/05/19 Quetiapine Fumarate 25 mg PO QPM 10/06/19 Levetiracetam [Keppra] 250 mg PO BID 12/30/19 - Allergies Allergies/Adverse Reactions: Allergies Allergy/AdvReac Type Severity Reaction Status Date / Time No Known Drug Allergies Allergy Verified 12/30/19 17:43 Review of Systems - Constitutional Constitutional: reports: Weight stable (weight 170.4lb). denies: Fever, Poor appetite - Eyes Eyes: denies: Corrective lenses - Ears, Nose & Throat Ears, Nose & Throat: denies: Hearing aids - Cardiovascular Cardiovascular: denies: Edema - Respiratory Respiratory: denies: Cough, Wheezing - Gastrointestinal Gastrointestinal: reports: Good appetite. denies: Constipation, Vomiting - Genitourinary Genitourinary: reports: Incontinence - Musculoskeletal Musculoskeletal: denies: Joint pain, Assistive devices - Integumentary Integumentary: denies: Pruritis - Neurological Neurological: reports: General weakness, Memory problems. denies: Seizures (controlled, presently on keppra 250mg BID) - Psychiatric Psychiatric: denies: Behavior disturbances - Endocrine Endocrine: denies: Hypothyroidism - Hematologic/Lymphatic Hematologic/Lymph: Other (No history of recurrent infections) - All Other Systems All Other Systems: reports: Reviewed and negative (Patient is a poor historian due to advanced dementia. Review of systems obtained from nursing and caregiving staff.) Physical Exam - Vital Signs Temperature: 36.4 C Pulse Rate: 61 O2 Saturation: 95 (on RA at rest) Blood Pressure: 106/75 (left wrist cuff) - Physical Exam General Appearance: positive: No acute distress, Alert, Other (sitting out in common area) Eyes Bilateral: positive: Other (ectropion to right lower eyelid; no discharge to b/l eyes noted) ENT: positive: No signs of dehydration, Other (Poor dentition) Neck: positive: Trachea midline Cardiovascular: positive: Regular rate & rhythm, No murmur Respiratory: positive: No respiratory distress, Breath sounds nml. negative: Rales Abdomen: positive: Non-tender, Soft, Nml bowel sounds Skin: positive: Dryness (noted most specifically to forehead) Extremities: positive: No pedal edema Neurologic/Psychiatric: positive: Disoriented to person, Disoriented to place, Disoriented to time, Unintelligible speech (nonverbal today), Other (No evidence of anxiety or aggitation; moving his right hand in a rhythmic beat like he is conducting (son denies history of muscial past)) Palliative Care - POLST Patient has POLST: Yes POLST Status: DNR, Comfort Measures Constipation: No Performance Status: FAST 7B - Palliative Care Discussion: The patient began having seizure activity beginning in May 2019 as an reoccurring event with unclear etiology. He had imaging done that was negative for an acute underlying abnormality. The patient's son/DPOA did not wish to pursue further evaluation as comfort is his primary goal for the patient. Patient was initiated on Keppra to 50 mg twice daily in December 2019 for prevention of seizure activity and he has tolerated this well with further instances reported. The patient noted weight loss over a series of months that has presently stabilized with the introduction of Ensure supplementation daily. He continues on meal monitoring with quite a good appetite of consuming greater than 50% of his meals. Impression and Recommendations - Palliative Care Impression: This is an 80-year-old man who was seen in follow-up today for a history of recurrent seizure activity, weight loss, and dementia as FAS T7 B. He has not had any seizure activity reported since the initiation of Keppra for proph ylaxis.The patient's son/DPOA, Vargas continues to report that goal is to have symptom management within the facility with a focus on comfort. Palliative care to continue to provide supportive listening, build rapport, symptom management and anticipatory guidance. Recommendations/Counseling Done: 1. Weight loss. Likely due to disease progression of dementia. Has stabilized at 170.4 pounds. Continue Ensure supplementation to be administered daily. Continue to offer 1 can of Ensure the patient consumes less than 50% of his meals. Continue to monitor weight trends. Continue to expect a gradual decline due to disease progression of dementia. 2. Seizure. No prior history of seizure activity before May 2019. Head CTs performed x2 were negative for acute underlying abnormality. Patient does however, have a past history of alcoholism prior to moving into [facility] in 2013. Has tolerated Keppra to 50 mg twice daily for seizure prophylaxis. Goal remains to be comfort measures. If needed, son would be open to dose adjustment of Keppra based on the patient's response and if there were a report of seizure activity. Continue thickened liquids and chopped meats with aspiration precautions. Continue to monitor. 3. Dementia. Chronic. Progressive. Fall precautions. On no disease modifying agents. Patient is presently a F AST 7B. Presently on quetiapine 25 mg daily and trazodone 50 mg nightly. Consider trial reduction of quetiapine at next evaluation if there continues to be no signs or symptoms of behavioral disturbances reported by staff. Given the patient's advanced age and chronic comorbidities a gradual decline is expected. Time Spent: CPT 37213. Plan of care reviewed with son/ANTHONY Kaye at [phone] and reviewed plan of care with agreement and questions answered and addressed. Disclaimer: The chart note was formulated using voice recognition technology and unfortunately sound alike errors may occur.
== END 2020-04-09 14:21 | disposition home or self-care (01) ==
LOC: PC 14:20
PROVIDERS: ATTEND Nurse Practitioner Family
DX: Z51.5 Encounter for palliative care (principal); R63.4 Abnormal weight loss; R56.9 Unspecified convulsions; F03.90 Unspecified dementia, unspecified severity, without behavioral disturbance, psychotic disturbance, mood disturbance, and anxiety; Z66 Do not resuscitate

== ENCOUNTER 2020-07-13 15:55 | Outpatient (CLI) | payer MEDICARE, OTHER ==
--- NOTE | 2020-07-13 19:38 | CONSULTATION NOTE ---
Palliative Care Follow Up - Referral Referring Provider: Dr. Muna Larry Time of Visit: Initiated 1555 Referral setting: Assisted living Referral Reason: Dementia/History of Seizures - Information Sources Records reviewed: Previous records reviewed History/Review of Systems obtained from: Caregiver, Nursing Exam limitations: Clinical condition (Advanced dementia and nonverbal) - History of Present Illness Update Brief HPI Update: This is an 80-year-old man who was seen in routine follow-up today at [facility] regarding advanced dementia and history of seizure activity. The patient continues to have a gradual functional decline. Caregivers deny any recent falls. However, he is having more difficulty standing upright during ambulation and is requiring increased assistance by facility staff. When walking from the dining table to his room he typically becomes easily fatigued. Facility staff reports that he continues to eat well but it takes a long time for mastication and consumes approximately 75 to 100% of his meals.No evidence of dysphagia during meals. He has had a weight loss for the from 174.6 pounds in June to 171.8 pounds. He continues on Ensure supplementation once daily. He began to have seizure-like activity the beginning of May 2019. He was evaluated in the emergency department in May 2019 and had a head CT performed without evidence of acute abnormality. He subsequently had further episodes of seizure activity please see detailed HPI from 12/30/2019 for further details. The patient was begun on Keppra in December 2019 and is presently on 250 mg twice daily for seizure prophylaxis. Facility staff deny any signs or symptoms of any recent seizure activity. Staff deny any acute behavioral concerns and the patient essentially remains nonverbal. Patient is seen resting in bed with his eyes closed. No evidence of acute distress. Would not follow simple commands and would not open his eyes upon request. Past Medical History: Patient has a past medical history of seizure-like activity, pleural effusions with thoracentesis, intermittent atrial fibrillation, GERD, cholelithiasis, colon polyps, dementia, essential tremor, hyperlipidemia, anemia, cellulitis of the left lower leg, history of alcohol abuse. Social History - Living Situation Living arrangement: Assisted living Support System: Patient is . He moved to [facility] in 1997. He was born in [place], [place]. [facility]. His son is his DPVargas TAN normal with contact number [phone]. Due to the coronavirus the patient's son/DPOA has not been to the facility for visiting but does check in regularly with nursing staff on the status of the patient. Medications/Allergies - Medications Home Medications: Ambulatory Orders Medication Instructions Recorded Confirmed Aspirin Chewable [St Patricio 81 mg PO DAILY #30 04/19/17 09/05/19 Aspirin] Pnv No.95/Ferrous Fum/Folic AC 1 tab PO DAILY #30 04/19/17 09/05/19 [ Tablet] Tamsulosin [Flomax] 0.4 mg PO DAILY #30 04/19/17 09/05/19 Bisacodyl Supp [Dulcolax Supp] 10 mg MD DAILY PRN 09/05/19 09/05/19 Loperamide HCl [Imodium A-D] 2 mg PO DAILY PRN 09/05/19 09/05/19 Magnesium Hydroxide [Milk of 5 ml PO PRN 09/05/19 Magnesia] Trazodone HCl 50 mg PO QPM 09/05/19 09/05/19 Quetiapine Fumarate 25 mg PO QPM 10/06/19 Levetiracetam [Keppra] 250 mg PO BID 12/30/19 Acetaminophen 500 mg PO BID 07/13/20 - Allergies Allergies/Adverse Reactions: Allergies Allergy/AdvReac Type Severity Reaction Status Date / Time No Known Drug Allergies Allergy Verified 07/13/20 19:43 Review of Systems - Constitutional Constitutional: reports: Weight loss (weight 171.8lb 07/13/2020; weight 174.6lb 06/15/2020). denies: Fever, Poor appetite - Eyes Eyes: denies: Irritation - Ears, Nose & Throat Ears, Nose & Throat: denies: Dentures - Cardiovascular Cardiovascular: reports: Decr. exercise tolerance. denies: Edema - Respiratory Respiratory: denies: Cough - Gastrointestinal Gastrointestinal: reports: Good appetite. denies: Constipation, Vomiting - Genitourinary Genitourinary: reports: Incontinence - Musculoskeletal Musculoskeletal: denies: Joint pain, Joint swelling, Assistive devices - Neurological Neurological: reports: General weakness, Memory problems. denies: Seizures (controlled, presently on keppra 250mg BID) - Psychiatric Psychiatric: denies: Behavior disturbances (controlled with seroquel) - Endocrine Endocrine: denies: Diabetes type 2 - Hematologic/Lymphatic Hematologic/Lymph: reports: Other (No history of recurrent infections) - All Other Systems All Other Systems: reports: Reviewed and negative (Patient is a poor historian due to advanced dementia. Review of systems obtained from nursing and caregiving staff.) Physical Exam - Vital Signs Temperature: 36.9 C Pulse Rate: 65 O2 Saturation: 98 (on RA at rest) Blood Pressure: 103/60 (left wrist cuff) - Physical Exam General Appearance: positive: No acute distress, Alert, Other (resting in bed, slightly dishelved) Eyes Bilateral: positive: Other (would not open eyes on command) ENT: positive: No signs of dehydration, Other (Poor dentition) Neck: positive: Trachea midline Cardiovascular: positive: Regular rate & rhythm Respiratory: positive: No respiratory distress, Breath sounds nml Abdomen: positive: Non-tender, Soft, Nml bowel sounds, Other (bladder nondistended) Skin: positive: Pallor Extremities: positive: No pedal edema Neurologic/Psychiatric: positive: Disoriented to person, Disoriented to place, Disoriented to time, Unintelligible speech (nonverbal), Other (No evidence of anxiety or aggitation; would not follow simple commands today) Palliative Care - POLST Patient has POLST: Yes POLST Status: DNR, Comfort Measures Pain: No pain Constipation: No Performance Status: Patient is able to ambulate independently but is requiring more monitoring has he fatigues easily. He is incontinent of bowel and bladder. No recent falls. Able to self feed. Nonverbal. FAS T7 B - Palliative Care Discussion: Patient has had a approximate 3 pound weight loss over the last month despite an appetite of consuming approximately 75 to 1% of his meals. No evidence of dysphagia reported by facility staff. Weight loss is indicative of progression of the patient's underlying dementia. Continue Ensure supplementation and meal monitoring and cueing for assistance. The patient has not displayed any evidence of seizure activity since initiation of Keppra 250 mg twice daily in December 2019 for prevention of seizure activity. The patient's son and DPOA wishes to focus on comfort as the primary goal for the patient within the facility environment. The patient's son recognizes that the patient has significant cognitive impairment reporting that when last visited sometime ago the patient did not have recollection of his son. Supportive listening provided to the patient's son today. Impression and Recommendations - Palliative Care Impression: This is an 80-year-old man who was seen in follow-up today for history of recu rrent seizure activity, weight loss, and dementia, FAS T7 B. He has not had any seizure activity reported since initiation of Keppra for prophylaxis. The goal remains to focus on comfort. Palliative care to continue provide support supportive listening, care coordination, symptom management and anticipatory guidance. Recommendations/Counseling Done: 1. Protein calorie malnutrition with noted weight loss. This is indicative of progression of the patient's advancement of his dementia. He has had approximately 2.8 pound weight loss in the last month. Continue to offer 1 can of Ensure if the patient consumes less than 50% of his meals. Continue Ensure supplementation daily. Continue to monitor weight trends. Would expect a gradual decline due to disease progression of dementia and patient's son/DPOA recognizes weight loss as a progression of the patient's underlying dementia. 2. Seizure activity. No prior history of seizure activity before May 2019. Head CTs performed x2 were negative for acute underlying abnormality. Patient does have a history of alcoholism prior to moving into home [facility] care in 2013. He has tolerated Keppra 250 mg twice daily for seizure prophylaxis. Goal remains to be comfort measures. The patient's son would be open to dose adjustment of Keppra based on the patient's response and if there was a report of seizure activity. Continue thickened liquids and chopped meats for aspiration precautions. Obtain Keppra and level and BMP on 07/15/2020 and follow with results for monitoring and son/DPOA in agreement. Continue to monitor. 3. BPH. Underlying urinary incontinence due to advancement of dementia. Continue tamsulosin 0.4 mg daily. Continue to monitor. 4. History of alcohol abuse. Has not consumed alcohol since 2013 when moving into [facility] care. Continue supplementation. 5.Dementia. Chronic. Progressive. Fall precautions. On no disease modifying agents. Patient is presently a FAS T7 B. On quetiapine 25 mg daily and trazodone 50 mg nightly. No behavioral disturbances reported by staff. Given the patient's advanced age and chronic comorbidities a gradual decline is expected. CPT 69738 Plan of care reviewed with facility NETWORK OPERATIONS PROJECT MANAGER with questions answered and addressed. Contacted patient's son/DPOA Vargas at [phone] reviewed plan of care with agreement and questions answered and addressed. Disclaimer: The chart note was formulated using voice recognition technology and unfortunately sound alike errors may occur.
== END 2020-07-13 15:56 | disposition home or self-care (01) ==
LOC: PC 15:55
PROVIDERS: ATTEND Nurse Practitioner Family
DX: Z51.5 Encounter for palliative care (principal); E46 Unspecified protein-calorie malnutrition; R56.9 Unspecified convulsions; N40.1 Benign prostatic hyperplasia with lower urinary tract symptoms; N39.498 Other specified urinary incontinence; F10.11 Alcohol abuse, in remission; F03.90 Unspecified dementia, unspecified severity, without behavioral disturbance, psychotic disturbance, mood disturbance, and anxiety; Z66 Do not resuscitate

== ENCOUNTER 2020-08-11 09:50 | Outpatient (CLI) | payer MEDICARE, OTHER ==
--- NOTE | 2020-08-11 15:15 | CONSULTATION NOTE ---
Palliative Care Follow Up - Referral Referring Provider: Dr. Muna Larry Time of Visit: Initiated 09 Referral setting: Assisted living Referral Reason: Lethargy and Change in condition/Dementia - Information Sources Records reviewed: Previous records reviewed History/Review of Systems obtained from: Caregiver, Nursing Exam limitations: Clinical condition (Advanced Dementia and Nonverbal) - History of Present Illness Update Brief HPI Update: This is an 80-year-old man who was seen and evaluated [facility] at [facility] due to decreased appetite and lethargy reported by facility staff in the setting of advanced dementia and history of seizure activity. The patient developed a temperature of 101 Fahrenheit on 08/08. He had a rapid COVID-19 test that was negative. His COVID-19 PCR is still pending. On the evening of he did not consumed dinner. On he did not consume meals and had minimal liquid intake. Then yesterday, the patient returned overall to his baseline with meal consumption eating 100% of his meals. His caregiver today, Wilman reports that he consumed 100% of his breakfast. The only residual effects that remained is that the patient is unsteady on his feet and is requiring wheelchair transfer versus ambulation with a gait belt. His present weight is 169.4 pounds obtained on 08/10. He has been afebrile since 08/08 and has returned to his usual alertness. Staff deny any development of seizure activity. He is presently on Keppra 250 mg twice daily for epileptic prophylaxis. His last Keppra level was 4.9 obtained on 07/15/2020. The patient is seen sitting out of bed in a wheelchair in the [facility] area. No evidence of acute distress. He is alert and tracking. He is often leaning on his right elbow and trying to pick at papers. Unable to follow simple commands. Past Medical History: Patient has a past medical history of seizure-like activity, pleural effusions with thoracentesis, intermittent atrial fibrillation, GERD, cholelithiasis, colon polyps, dementia, essential tremor, hyperlipidemia, anemia, cellulitis of the left lower leg, history of alcohol abuse. Social History - Living Situation Living arrangement: Assisted living Support System: Patient is . He moved to [facility] in 1997. He was born in [place], [place]. [facility]. His son is his DPOA, Vargas normal with contact number [phone]. Medications/Allergies - Medications Home Medications: Ambulatory Orders Medication Instructions Recorded Confirmed Aspirin Chewable [St Patricio 81 mg PO DAILY #30 04/19/17 09/05/19 Aspirin] Pnv No.95/Ferrous Fum/Folic AC 1 tab PO DAILY #30 04/19/17 09/05/19 [ Tablet] Tamsulosin [Flomax] 0.4 mg PO DAILY #30 04/19/17 09/05/19 Bisacodyl Supp [Dulcolax Supp] 10 mg NH DAILY PRN 09/05/19 09/05/19 Loperamide HCl [Imodium A-D] 2 mg PO DAILY PRN 09/05/19 09/05/19 Magnesium Hydroxide [Milk of 5 ml PO PRN 09/05/19 Magnesia] Trazodone HCl 50 mg PO QPM 09/05/19 09/05/19 Quetiapine Fumarate 25 mg PO QPM 10/06/19 Levetiracetam [Keppra] 250 mg PO BID 12/30/19 Acetaminophen 500 mg PO BID 07/13/20 - Allergies Allergies/Adverse Reactions: Allergies Allergy/AdvReac Type Severity Reaction Status Date / Time No Known Drug Allergies Allergy Verified 07/13/20 19:43 Review of Systems - Constitutional Constitutional: reports: Fatigue, Fever (T-max 101 on 08/08/2020 that has resolved), Poor appetite (reported on 08/09 that has resolved), Weight loss (weight 169.4lb on 08/10/2020; weight 171.8lb 07/13/2020; weight 174.6lb 06/15/2020) - Eyes Eyes: denies: Corrective lenses - Ears, Nose & Throat Ears, Nose & Throat: denies: Dry mouth - Cardiovascular Cardiovascular: reports: Decr. exercise tolerance. denies: Edema - Respiratory Respiratory: denies: Cough - Gastrointestinal Gastrointestinal: reports: Good appetite (has returned to consuming 100% of meals. On Ensure 1 bottle daily.). denies: Abdominal pain, Constipation, Vomit ing - Genitourinary Genitourinary: reports: Incontinence - Musculoskeletal Musculoskeletal: reports: Joint swelling (right elbow), Assistive devices, Transfer issues. denies: Joint pain - Neurological Neurological: reports: General weakness, Memory problems, Abnormal gait (see HPI). denies: Seizures (controlled, presently on keppra 250mg BID) - Psychiatric Psychiatric: denies: Behavior disturbances (controlled) - Hematologic/Lymphatic Hematologic/Lymph: reports: Other (No history of recurrent infections) - All Other Systems All Other Systems: reports: Reviewed and negative (Patient is a poor historian due to advanced dementia. Review of systems obtained from nursing and caregiving staff.) Physical Exam - Vital Signs Temperature: 37.0 C Pulse Rate: 77 O2 Saturation: 92 (on RA) Blood Pressure: 125/68 (left arm) - Physical Exam General Appearance: positive: No acute distress, Alert, Other ( slightly dishelved, OOB in wheelchair) Eyes Bilateral: positive: Other (+right eye ectropion to lowerlid) ENT: positive: No signs of dehydration, Other (Poor dentition) Neck: positive: Trachea midline. negative: Lymphadenopathy (R), Lymphadenopathy (L) Cardiovascular: positive: Regular rate & rhythm Respiratory: positive: No respiratory distress, Breath sounds nml. negative: Wheezes Abdomen: positive: Non-tender, Soft, Nml bowel sounds, Other (bladder nondistended, negative CVA tenderness b/l) Skin: positive: Pallor Extremities: positive: No pedal edema, Other (Right elbow burisitis: flucculant, nontender, without warmth to touch or visible erythema) Neurologic/Psychiatric: positive: Disoriented to person, Disoriented to place, Disoriented to time, Unintelligible speech (nonverbal), Other (No evidence of anxiety or aggitation; would not follow simple commands today) Palliative Care - POLST Patient has POLST: Yes POLST Status: DNR, Comfort Measures - Palliative Care Discussion: Patient had a little over 24 hours where he was febrile, increased lethargy and decreased appetite. He has subsequently almost returned back to his baseline and facility staff wished for an assessment to be made of the resident. He is no longer febrile. He is consuming 100% of his meals again. He has some lingering pain lower extremity weakness that would be expected to gradually and improve. We will continue fall precautions.He is not displayed any evidence of seizure activity. Results - Lab Results Lab results reviewed: Yes Lab and Imaging Results: 07/15/2020 Keppra 4.9 UG\mL Impression and Recommendations - Palliative Care Impression: This is an 80-year-old man who was acutely febrile of unknown pathology that has subsequently resolved with resolution of of lethargy, improved appetite, with a new right olecranon bursitis without signs and symptoms of infection. Previously stated the patient's son/DPOA has requested to focus on symptom management and comfort within the facility. Palliative care to continue to provide support, care coordination, symptom management and anticipatory guidance. Recommendations/Counseling Done: 1. Febrile illness of unknown etiology, resolved. Patient is no longer febrile since 08/08. He has almost returned to his baseline function. Rapid Covid19 testing was negative with PCR pending with results. Potentially had a viral illness that was short in duration. Continue to encourage oral hydration. Obtain vital signs every shift x3 days and notify MD/TEACHER THEATER ARTS if patient's temperature is greater than 100 F, respirations greater than 25 breaths/min or heart rate greater than 100 bpm. 2. Generalized weakness. Due to recent viral illness and would expect to have improvement back to baseline function in a few days. Fall precautions. Continue to utilize gait belt and wheelchair for transport team as needed. Continue to monitor. 3. Right olecranon bursitis. Patient appears to prefer leaning on his right side increasing his risk of bursitis. No signs and symptoms of infection at the site. No tenderness upon palpation. Apply a cool compress to the right elbow 3 times daily for 7 days. Apply an Kevin wrap to the right elbow in the morning and remove in the evening for 2 weeks. Request that facility staff monitor the patient's hand for signs and symptoms of swelling when Kevin wrap is in place. As the patient prefers to his right side and leaning on that elbow unclear if the bursitis will resolve on its own. Two courses of option are available: one would be to have the patient's PCP drain the bursa of fluid or the other is if the patient is remains asymptomatic without pain would continue to monitor and provide supportive care. 4. Dementia. Chronic. Progressive. Fall precautions. On no disease modifying agents. Presently on quetiapine 25 mg daily and trazodone 50 nightly milligrams nightly. Consider trial reduction of quetiapine at next evaluation if there are no signs or symptoms of behavioral disturbances reported by staff. Given the patient's advanced age and chronic comorbidities a gradual decline is expected. CPT 66157 Plan of care reviewed with SALVATORE Gray on site. Called and left message for son/DPOA Vargas at [phone] to review plan of care and awaiting return call back. Disclaimer: The chart note was formulated using voice recognition technology and unfortunately sound alike errors may occur.
== END 2020-08-11 09:51 | disposition home or self-care (01) ==
LOC: PC 09:50
PROVIDERS: ATTEND Nurse Practitioner Family
DX: Z51.5 Encounter for palliative care (principal); R53.1 Weakness; M70.21 Olecranon bursitis, right elbow; Y93.89 Activity, other specified; F03.90 Unspecified dementia, unspecified severity, without behavioral disturbance, psychotic disturbance, mood disturbance, and anxiety; Z66 Do not resuscitate

== ENCOUNTER 2020-12-06 14:20 | Outpatient (CLI) | payer MEDICARE, OTHER ==
--- NOTE | 2020-12-06 21:54 | CONSULTATION NOTE ---
Palliative Care Follow Up - Referral Referring Provider: Dr. Muna Larry Time of Visit: Initiated 1415 Referral setting: Assisted living Referral Reason: Dementia/History of Seizures - Information Sources Records reviewed: Previous records reviewed History/Review of Systems obtained from: Caregiver, Nursing Exam limitations: Clinical condition (Advanced Dementia) - History of Present Illness Update Brief HPI Update: his is an 80-year-old man who was seen in routine follow-up [facility] at [facility] regarding advanced dementia and history of seizure activity. The patient continues to have a gradual functional decline. Caregivers deny any recent falls. Facility staff reports that he continues to eat well but it takes a long time for mastication and consumes approximately 75 to 100% of his meals.No evidence of dysphagia during meals. He continues on Ensure supplementation once daily.His weight is maintaining at 170.6lb presently. He continues with right elbow bursitis without s/s of infection and is likely due to his preferred position with leaning on services. He continues with routine monitoring of the site. He began to have seizure-like activity the beginning of May 2019. He was evaluated in the emergency department in May 2019 and had a head CT performed without evidence of acute abnormality. He subsequently had further episodes of seizure activity please see detailed HPI from 12/30/2019 for further details. The patient was begun on Keppra in December 2019 and is presently on 250 mg twice daily for seizure prophylaxis. Facility staff deny any signs or symptoms of any recent seizure activity. Staff deny any acute behavioral concerns and the patient essentially remains nonverbal. Patient is seen resting in bed with his eyes closed. No evidence of acute distress. Would not follow simple commands but responded to tactile stimuli to open his eyes. Past Medical History: Patient has a past medical history of seizure-like activity, pleural effusions with thoracentesis, intermittent atrial fibrillation, GERD, cholelithiasis, colon polyps, dementia, essential tremor, hyperlipidemia, anemia, cellulitis of the left lower leg, history of alcohol abuse. S Social History - Living Situation Living arrangement: Assisted living Support System: Patient is . He moved to [facility] in 1997. He was born in [place], [place]. [facility]. His son is his DPOA, Vargas Cade with contact number [phone]. Medications/Allergies - Medications Home Medications: Ambulatory Orders Medication Instructions Recorded Confirmed Aspirin Chewable [St Patricio 81 mg PO DAILY #30 04/19/17 09/05/19 Aspirin] Pnv No.95/Ferrous Fum/Folic AC 1 tab PO DAILY #30 04/19/17 09/05/19 [ Tablet] Tamsulosin [Flomax] 0.4 mg PO DAILY #30 04/19/17 09/05/19 Bisacodyl Supp [Dulcolax Supp] 10 mg TN DAILY PRN 09/05/19 09/05/19 Loperamide HCl [Imodium A-D] 2 mg PO DAILY PRN 09/05/19 09/05/19 Magnesium Hydroxide [Milk of 5 ml PO PRN 09/05/19 Magnesia] Trazodone HCl 50 mg PO QPM 09/05/19 09/05/19 Quetiapine Fumarate 25 mg PO QPM 10/06/19 Levetiracetam [Keppra] 250 mg PO BID 12/30/19 Acetaminophen 500 mg PO BID 07/13/20 - Allergies Allergies/Adverse Reactions: Allergies Allergy/AdvReac Type Severity Reaction Status Date / Time No Known Drug Allergies Allergy Verified 07/13/20 19:43 Review of Systems - Constitutional Constitutional: reports: Weight stable (weight 170.6lb 11/30/2020; weight 169.4lb on 08/10/2020; weight 171.8lb 07/13/2020; weight 174.6lb 06/15/2020). denies: Fever, Poor appetite - Eyes Eyes: denies: Corrective lenses - Ears, Nose & Throat Ears, Nose & Throat: denies: Postnasal drainage - Cardiovascular Cardiovascular: denies: Edema - Respiratory Respiratory: denies: Cough (see HPI) - Gastrointestinal Gastrointestinal: reports: Good appetite (consuming typically 100% of meals. On Ensure 1 bottle daily.). denies: Constipation, Vomiting - Genitourinary Genitourinary: reports: Incontinence - Musculoskeletal Musculoskeletal: reports: Joint swelling (right elbow), Assistive devices, Transfer issues. denies: Joint pain - Neurological Neurological: reports: General weakness, Memory problems. denies: Seizures (controlled, presently on keppra 250mg BID) - Endocrine Endocrine: denies: Diabetes type 2 - Hematologic/Lymphatic Hematologic/Lymph: reports: Other (No history of recurrent infections) - All Other Systems All Other Systems: reports: Reviewed and negative (Patient is a poor historian due to advanced dementia. Review of systems obtained from nursing and caregiving staff.) Physical Exam - Vital Signs Temperature: 36.3 C Pulse Rate: 88 O2 Saturation: 91 (on RA) Blood Pressure: 129/77 - Physical Exam General Appearance: positive: No acute distress, Alert, Other ( slightly dishelved, resting in bed, arousable to tactile stimuli) Eyes Bilateral: positive: Other (+right eye ectropion to lowerlid) ENT: positive: No signs of dehydration, Other (Poor dentition) Neck: positive: Trachea midline Cardiovascular: positive: Regular rate & rhythm Respiratory: positive: No respiratory distress, Breath sounds nml Abdomen: positive: Non-tender, Soft, Nml bowel sounds Skin: positive: Pallor Extremities: positive: No pedal edema, Other (Right elbow burisitis: flucculant, nontender, without warmth to touch or visible erythema) Neurologic/Psychiatric: positive: Disoriented to person, Disoriented to place, Disoriented to time, Unintelligible speech (nonverbal), Other (No evidence of anxiety or aggitation; would not follow simple commands today) Palliative Care - POLST Patient has POLST: Yes POLST Status: DNR, Comfort Measures Pain: No pain Sleep: Sleeps well Constipation: No Performance Status: FAST 7B - Palliative Care Discussion: Patient has not displayed any evidence of seizure activity since initiation of Keppra 250 mg twice daily in December 2019 for prevention of seizure activity. The patient's son and DPOA has wish to focus on comfort as a primary goal for the patient within the facility environment. The patient has presently plateaued but is at risk for subsequent sequela due to advancement of his dementia. Presently, he has not had any acute illnesses or noted weight loss with stable oral intake. 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 He has not had any seizure activity since initiation of Keppra for prophylaxis. He has not had any recent weight loss. The goal remains to focus on comfort. Palliative care to continue to provide support, care coordination, symptom management and anticipatory guidance. Recommendations/Counseling Done: 1. Protein calorie malnutrition. Weight loss has been stable. Presently at 170.6 pounds on 11/30/2020. Continue to offer 1 can of Ensure if patient consumes less than 50% of his meals. Continue Ensure supplementation daily. Continue to monitor weight loss trends. Would expect a gradual decline due to disease progression of dementia with weight loss in the future. 2. Seizure activity. No prior history of seizure activity prior to May 2019. Head CT performed x2 were negative for acute underlying abnormality. Patient does have a history of alcoholism prior to moving into [facility] in 2013. He has tolerated initiation of Keppra 250 mg twice daily for seizure prophylaxis. Goal remains to be on comfort measures. Patient's son previously stated he would be open to dose adjustment of Keppra based on the p atient's response and if there is a report of seizure activity. Previously declined as needed availability of lorazepam for seizure activity. Continue thickened liquids and chopped meats for aspiration precautions. Continue to monitor. 3. Right olcecranon bursitis. Patient appears to prefer prefer leaning on his right side. Continues with mild bursitis to the right elbow with no signs and s ymptoms of infection. Staff to continue to monitor the site for any signs or symptoms of infection on a daily basis. 4. Dementia. Chronic. Progressive. Fall precautions. On no disease modifying agents. Presently on quetiapine 25 mg daily and trazodone 50 mg at bedtime. Behavioral disturbances are presently not reported by facility staff. No recent falls. Consider trial reduction of quetiapine in the future if there are no signs or symptoms of behavioral disturbances reported by staff. Given the patient's advanced age and chronic comorbidities a gradual decline is expected. CPT 31548 Plan of care reviewed with SALVATORE Ahumada on site. Called and left a message for son/ANTHONY Kaye at [phone] to review plan of care and address any questions or concerns and awaiting return call back. Disclaimer: The chart note was formulated using voice recognition technology and unfortunately sound alike errors may occur.
== END 2020-12-06 14:21 | disposition home or self-care (01) ==
LOC: PC 14:20
PROVIDERS: ATTEND Nurse Practitioner Family
DX: Z51.5 Encounter for palliative care (principal); M71.9 Bursopathy, unspecified; R56.9 Unspecified convulsions; E46 Unspecified protein-calorie malnutrition; F03.90 Unspecified dementia, unspecified severity, without behavioral disturbance, psychotic disturbance, mood disturbance, and anxiety; Z79.899 Other long term (current) drug therapy; Z66 Do not resuscitate

== ENCOUNTER 2021-03-31 09:30 | Outpatient (CLI) | payer MEDICARE, OTHER ==
--- NOTE | 2021-03-31 17:52 | CONSULTATION NOTE ---
Palliative Care Follow Up - Referral Referring Provider: Dr. Muna Larry Time of Visit: Initiated 929 Referral setting: Assisted living Referral Reason: Dementia with behavior/Weight loss/Right elbow bursitis - Information Sources Records reviewed: Previous records reviewed History/Review of Systems obtained from: Nursing (SALVATORE Gray) Exam limitations: Clinical condition (Advanced Dementia) - History of Present Illness Update Brief HPI Update: This is an 80-year-old gentleman who is seen in follow-up [facility] at [facility] regarding advanced dementia, history of seizure activity, and right olecranon bursitis. Provider wore N95 mask. The patient continues to have a gradual, functional decline. He is no longer ambulatory and is using a wheelchair and is able to self propel. He continues to have supplementation of Ensure on a daily basis as well as availability if he consumes less than 3% of his meal to be offered and Ensure. He remains on meal monitoring typically consuming 50 to 100% of his meals. His weight has been steadily decreasing with most recent weight 1 6 D2 pounds. Weight in November 2020 was 170.6 pounds. The patient continues to have ray Albro bursitis without signs and symptoms of infection as his preferred position is leading on surfaces on his right side. Nursing staff reported increased firmness on 03/20 to the site without redness, warmth, or tenderness to palpation. Today, the patient is not bothered when the site is being examined. He has a history of having seizure-like activity beginning of May 2019. He was evaluated in the emergency department and had a head CT performed without evidence of acute abnormality. He subsequently had further episodes of seizure activity and please see detailed HPI from 12/30/2019 for further details. He was begun on Keppra in December 2019 and is presently on 250 mg twice daily for seizure prophylaxis. He has not had any seizure activity. The patient remains nonverbal. He is seen out of bed today in a wheelchair no evidence of acute distress. Past Medical History: Patient has a past medical history of seizure-like activity, pleural effusions with thoracentesis, intermittent atrial fibrillation, GERD, cholelithiasis, colon polyps, dementia, essential tremor, hyperlipidemia, anemia, cellulitis of the left lower leg, history of alcohol abuse. Social History - Living Situation Living arrangement: Assisted living Support System: Patient is . He moved to [facility] in 1997. He was born in [place], [place]. [facility]. His son is his DPOA, Vargas Cade with contact number [phone]. Son has not visited recently and plans to after Thanksgiving. Medications/Allergies - Medications Home Medications: Ambulatory Orders Medication Instructions Recorded Confirmed Aspirin Chewable [St Patricio 81 mg PO DAILY #30 04/19/17 09/05/19 Aspirin] Pnv No.95/Ferrous Fum/Folic AC 1 tab PO DAILY #30 04/19/17 09/05/19 [ Tablet] Tamsulosin [Flomax] 0.4 mg PO DAILY #30 04/19/17 09/05/19 Bisacodyl Supp [Dulcolax Supp] 10 mg SC DAILY PRN 09/05/19 09/05/19 Loperamide HCl [Imodium A-D] 2 mg PO DAILY PRN 09/05/19 09/05/19 Magnesium Hydroxide [Milk of 30 ml PO PRN 09/05/19 Magnesia] Quetiapine Fumarate 25 mg PO QPM 10/06/19 Levetiracetam [Keppra] 250 mg PO BID 12/30/19 Acetaminophen 500 mg PO BID 07/13/20 - Allergies Allergies/Adverse Reactions: Allergies Allergy/AdvReac Type Severity Reaction Status Date / Time No Known Drug Allergies Allergy Verified 03/31/21 18:13 Review of Systems - Constitutional Constitutional: reports: Weight loss (weight 162lb 03/29/21; weight 170.6lb 11/30/2020; weight 169.4lb on 08/10/2020; weight 171.8lb 07/13/2020; weight 174.6lb 06/15/2020). denies: Fever, Poor appetite - Cardiovascular Cardiovascular: denies: Edema - Respiratory Respiratory: denies: Wheezing - Gastrointestinal Gastrointestinal: reports: Good appetite (see HPI; On Ensure 1 bottle daily.). denies: Constipation, Vomiting - Genitourinary Genitourinary: reports: Incontinence - Musculoskeletal Musculoskeletal: reports: Joint swelling (right elbow), Assistive devices, Transfer issues. denies: Joint pain - Integumentary Integumentary: denies: Rash - Neurological Neurological: reports: General weakness, Memory problems. denies: Seizures (controlled, presently on keppra 250mg BID) - Hematologic/Lymphatic Hematologic/Lymph: reports: Other (No history of recurrent infections) - All Other Systems All Other Systems: reports: Reviewed and negative (Patient is a poor historian due to advanced dementia. Review of systems obtained from SALVATORE Gray.) Physical Exam - Vital Signs Temperature: 36.5 C Pulse Rate: 83 O2 Saturation: 99 Blood Pressure: 121/81 - Physical Exam General Appearance: positive: No acute distress, Alert, Other ( slightly dishelved, sitting in wheelchair) Eyes Bilateral: positive: Conjunctivae nml, Other (+right eye ectropion to lowerlid) ENT: positive: No signs of dehydration, Other (Poor dentition) Neck: positive: Trachea midline Cardiovascular: positive: Regular rate & rhythm Respiratory: positive: No respiratory distress, Breath sounds nml Abdomen: positive: Non-tender, Soft, Nml bowel sounds. 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 He continues to have bursitis to his right elbow without signs and symptoms of infection. He is not bothered by this area however, it has increased in size since last evaluation indicative of his preference for leaning on the right side. Would benefit from elbow protection and this is provided today to be applied in the morning and removed in the evening. Impression and Recommendations - Palliative Care Impression: This is an 81-year-old gentleman who is seeing in follow-up today due to history of recurrent seizure activity, weight loss, advancing dementia at FAS T7 C and right olecranon bursitis that is persisting. He has been without seizure activity since initiation of Keppra for prophylaxis. He is having gradual weight loss noted despite a consuming approximately 100% of his meals. He continues to have persistent right olecranon bursitis that has no evidence of infection. Goal remains to focus on comfort. Palliative care to continue provide support, care coordination, symptom management and anticipatory guidance. Recommendations/Counseling Done: 1. Right elbow chronic bursitis. Fevers leaning on his right side. Contacted the patient's son/DPOA today and reviewed causes of bursitis and signs and symptoms at length as well as potential options of having the patient leave the facility to see his PCP for drainage of the bursitis. Given the patient's advanced dementia and stress and anxiety leaving the memory care unit would be for him son opts to focus on management of symptoms and the facility environment. Recognizes that if develops signs and symptoms of infection who would initiate oral antibiotic therapy and reevaluate having the fluid removed from the bursa sac. In the interim, patient requested to have elbow pad placed in the morning and removed in the evening to provide support and offloading of direct pressure to the right elbow. Staff to continue to monitor for signs and symptoms of infection on a daily basis. 2. Protein calorie malnutrition. Weight loss noted. Indicative of advancement of dementia. Continue to offer 1 can of Ensure if the patient consumes less than 50% of his meals. Continue Ensure supplementation daily. Continue to monitor weight loss trends. Would expect a continual gradual decline due to disease progression of dementia. 3. History of seizure activity. No prior history of seizure activity prior to May 2019. Head CT performed x2 were negative for acute underlying abnormality. Patient has a history of alcoholism prior to [facility]. Continues on Keppra 250 mg twice daily for seizure prophylaxis. Goal remains to be on comfort measures. Continue thickened liquids and chopped meats for aspiration precautions. Continue to monitor. 4. Dementia. Chronic. Progressive. Fall precautions. On no disease modifyi ng agents. Presently on quetiapine 20 mg daily. No recent falls. May consider trial reduction of quetiapine in the future if there are no signs or symptoms of behavioral disturbances reported by staff. Discussed advancement of the patient's dementia now with him no longer being ambulatory with the patient's son/DPOA highlighting progression of dementia. Given the patient's advanced age and chronic comorbidities a gradual decline is expected. CPT 97661 Contacted patient's son/DPOA Vargas at [phone] to review plan of care with questions answered and addressed. Reviewed plan of care with SALVATORE Ahumada on site. Disclaimer: The chart note was formulated using voice recognition technology and unfortunately sound alike errors may occur.
== END 2021-03-31 09:31 | disposition home or self-care (01) ==
LOC: PC 09:30
PROVIDERS: ATTEND Nurse Practitioner Family
DX: Z51.5 Encounter for palliative care (principal); M70.21 Olecranon bursitis, right elbow; E46 Unspecified protein-calorie malnutrition; Z86.69 Personal history of other diseases of the nervous system and sense organs; F03.90 Unspecified dementia, unspecified severity, without behavioral disturbance, psychotic disturbance, mood disturbance, and anxiety; Z66 Do not resuscitate